=== PATIENT | female | born 1995 | race Caucasian/White ===

== ENCOUNTER 2023-03-02 03:11 | Outpatient (CLI) | payer OTHER, SELFPAY ==
[2023-03-03 11:14] LABS: Varicella IgG Antibody Positive (See Note)
[2023-03-03 21:54] LABS: Syphilis IgG w/Reflex Nonreactive (Nonreactive)
== END 2023-03-02 03:12 | disposition home or self-care (01) ==
LOC: LBO 03:11
PROVIDERS: Visit Provider Advanced Practice Midwife
DX: Z34.92 Encounter for supervision of normal pregnancy, unspecified, second trimester (principal); Z3A.20 20 weeks gestation of pregnancy; Z01.84 Encounter for antibody response examination
CPT/HCPCS: 36415; 86787; 86850; 86900; 86901; 86780

== ENCOUNTER 2023-04-06 17:37 | Emergency (ER) | payer SELFPAY ==
[2023-04-06 17:46] VITALS: BP 125/69; PULSE 86; RESP 16; TEMP 36.8; O2SAT 99
--- NOTE | 2023-04-06 18:10 | W.ED.GENAD ---
Discharge Plan Disposition Patient Disposition: Home Condition: Stable Discharge Details Clinical Impression: Phlebitis of superficial vein of right lower extremity Primary Care Provider: Unknown,Unknown ED Provider: Mamie Manley Home Meds and New Rx's Prescriptions: Continued PNV 119-iron fum-folic acid 29 mg iron- 1 mg tablet 1 tab PO DAILY Discharge Instructions Instructions: Superficial Thrombophlebitis (ED) Referrals: Unknown,Unknown [Primary Care Provider] - (Keep scheduled [facility] follow-up appointments) Discharge Data Discharge Date/Time-TO BE ENTERED AT DEPARTURE: 04/06/23 18:21 Medical Decision Making Patient presents with concern of feeling a lump in her foot. Physical examination is most consistent with phlebitis. There is no surrounding erythema. Bedside ultrasound shows no abscess or foreign body. HPI General Mode of arrival: ambulatory. Date/Time Provider Initiated Documentation: 04/06/23 17:39. Limitations to Documentation: no limitations. Information obtained by: patient. HPI Narrative: This is a healthy 27 year old female, 25 weeks who presents with 4 week history of a small area on her inner right foot reported initially as a small lump. There is no surrounding erythema. The area has grown now approximately 3 to 4 cm's long. She has had no fever no chills there is no pain. Denies any similar history. Denies any other complaints she is eating and drinking well and feels well. Denies any issues with her is followed by [facility]PR[facility]ICE Related Data Home Medications Medication Instructions Recorded Confirmed vitamins no.119-iron 1 tab PO DAILY 03/02/23 04/06/23 fumarate 29 mg-folic acid 1 mg tablet Allergies Allergy/AdvReac Type Severity Reaction Status Date / Time No Known Allergies Allergy Unverified 04/06/23 17:49 General Stated Complaint: GenMedical NADYA: 4 Review of Systems All systems reviewed & are unremarkable except as noted in HPI and below PFSH All Active Problems (Updated 04/06/23 @ 18:13 by Mamie Manley NP) Phlebitis of superficial vein of right lower extremity (Acute) Eczema (Acute) (Acute) Medical History (Updated 04/06/23 @ 18:13 by aMmie Manley NP) Anxiety Family history of breast cancer mother Family History (Updated 03/02/23 @ 09:44 by Cha Tang CNM) Maternal Grandmother Breast cancer Paternal Grandmother Breast cancer Mother Breast cancer age 29 Brother Kidney disease Anxiety Father Bipolar 1 disorder Social History Smoking/Tobacco Use Status: Former Tobacco Use Smoking risk assessment performed?: Yes Alcohol Intake: former Drug use: Current Sobriety Substance use type: marijuana Housing: house Do you feel safe at home: Yes Do you feel safe in your relationship?: Yes History History 1 Para 0 Hx # Term Pregnancies 0 Multiple births 0 Hx # Pregnancies 0 Ectopic pregnancies 0 AB induced 0 Hx Number of Living Children 0 AB spontaneous 0 Exam Const General: cooperative, healthy appearing and comfortable Nutritional Appearance: average body habitus Orientation: alert, awake and oriented x3 Chest Chest: normal inspection of the chest Resp Effort & Inspection: normal respiratory effort Cardio Rate: regular rate Rhythm: other (Good pedal pulse) Skin General skin exam: no rashes or lesions noted, no ecchymosis and other (Small linear elevation on inner aspect of the arch of her right foot) Rashes: no rashes Extrem General: no pedal edema Course Vital Signs Vital signs: Vital Signs Temperature 36.8 C 04/06/23 17:46 Pulse 86 04/06/23 17:46 Respiratory Rate 16 04/06/23 17:46 Blood Pressure 125/69 04/06/23 17:46 Pulse Oximetry 99 04/06/23 17:46 Temperature 36.8 C 04/06/23 17:46 Temperature Source Skin 04/06/23 17:46 Pulse 86 04/06/23 17:46 Respiratory Rate 16 04/06/23 17:46 Respiratory Effort Normal 04/06/23 17:57 Respiratory Depth Normal 04/06/23 17:57 Respiratory Pattern Normal 04/06/23 17:57 Blood Pressure 125/69 04/06/23 17:46 Blood Pressure Position Supine 04/06/23 17:46 Pulse Oximetry 99 04/06/23 17:46 Oxygen Delivery Method Room Air 04/06/23 17:46 Oxygen Flow Rate 0 04/06/23 17:46 Pain Level 0 04/06/23 17:46
== END 2023-04-06 18:21 | disposition home or self-care (01) ==
PROVIDERS: Emergency Provider Nurse Practitioner Acute Care
DX: O22.22 Superficial thrombophlebitis in pregnancy, second trimester (principal); Z87.891 Personal history of nicotine dependence; Z3A.25 25 weeks gestation of pregnancy
CPT/HCPCS: 99282

== ENCOUNTER 2023-04-26 01:45 | Outpatient (CLI) | payer OTHER, SELFPAY ==
[2023-04-26 09:34] LABS: HCT 33.8 % (36.0-46.0); HGB 11.9 g/dL (11.2-15.7); MCH 33.1 pg (27.0-33.0); MCHC 35.2 % (32.0-36.0); MCV 94 fL (80-95); MPV 10.9 fL (8.0-11.0); Platelet Count 158 10^3/uL (130-400); RDW 12.9 % (11.7-14.6); RDW-SD 44.5 fL
[2023-04-26 09:50] LABS: Glucose,1 Hr (Glucola) 137 mg/dL (80-140)
[2023-04-27 09:36] LABS: Hepatitis C Ab w Rflx HCV PCR Negative (Negative)
== END 2023-04-26 01:46 | disposition home or self-care (01) ==
LOC: LBO 01:45
PROVIDERS: Visit Provider Advanced Practice Midwife
DX: Z34.93 Encounter for supervision of normal pregnancy, unspecified, third trimester (principal); Z3A.28 28 weeks gestation of pregnancy
CPT/HCPCS: 36415; 82950; 85027; 86803

== ENCOUNTER 2023-05-05 01:50 | Outpatient (CLI) | payer BC, SELFPAY ==
[2023-05-05 08:47] LABS: Glucose 1 Hour 160 mg/dL
[2023-05-05 10:57] LABS: Glucose 3 Hour 57 mg/dL
== END 2023-05-05 01:51 | disposition home or self-care (01) ==
LOC: LBO 01:50
PROVIDERS: Visit Provider Advanced Practice Midwife
DX: Z34.93 Encounter for supervision of normal pregnancy, unspecified, third trimester (principal); Z3A.29 29 weeks gestation of pregnancy
CPT/HCPCS: 36415; 82951

== ENCOUNTER 2023-06-21 10:56 | Outpatient (REF) | payer BC, SELFPAY ==
[2023-06-21 11:51] LABS: *AMPHETAMINES SCREEN URINE Negative (Negative); *BARBITURATES SCREEN URINE Negative (Negative); *BENZODIAZEPINES SCREEN URINE Negative (Negative); Cannabinoids THC Negative (Negative); Cocaine Screen,Urine Negative (Negative); METHADONE URINE SCREEN Negative (Negative); OPIATES URINE SCREEN Negative (Negative)
[2023-06-21 11:52] LABS: Tricyclic Antidepressants Negative (Negative)
[2023-06-27 12:19] LABS: Buprenorphine Negative ng/mL (Cutoff: 5.0); Norbuprenorphine Negative ng/mL (Cutoff: 2.5)
== END 2023-06-21 10:57 | disposition home or self-care (01) ==
LOC: LBN 10:56
PROVIDERS: Visit Provider Advanced Practice Midwife
DX: Z34.93 Encounter for supervision of normal pregnancy, unspecified, third trimester (principal)
CPT/HCPCS: 80307; 80348; 87081

== ENCOUNTER 2023-07-24 07:19 | Outpatient (CLI) | payer BC, SELFPAY ==
[2023-07-24 09:13] VITALS: BP 135/80; PULSE 81
[2023-07-24 09:17] VITALS: BP 135/80; PULSE 73; RESP 16; TEMP 36.8
[2023-07-24 10:08] VITALS: BP 135/80; PULSE 73; TEMP 38.6
--- NOTE | 2023-07-24 10:55 | W.OBNST ---
Date of service: 07/24/23 Time of Service: 10:55 NST Evaluation Reason for NST Reasons for Nonstress Test: POSTDATES Gestational Age Gestational Age in Weeks and Days: 41 Weeks and 1Days Test and Monitor Explained Test/Monitor Explained: Test Explained, Monitor Explained and Patient Verbalized Understanding Vital Signs Blood Pressure: 135/80 Pulse: 73 Temperature: 101.5 F NST Information Date on Monitor: 07/24/23 Time on Monitor: 09:20 Date off Monitor: 07/24/23 Time off Monitor: 09:41 Total Time on Monitor: 21 NST Interventions: None Contraction Frequency: None NST Evaluation Patient States Movement: Present FHR Baseline: 145 Variability: Moderate 6-25 bpm Accelerations: 15x15 Decelerations: None NST Results: Reactive Note Ultrasound Done: ZOILA (postdates) Total ZOILA: 16.0 Other Pertinent Findings: Heart Rate (148 bpm), Presentation (LOP) and Placental Location (posterior) Coding for ZOILA w/NST: Completed Exam. NST Note Note: Cvx closed, 50% posterior, cephalic presentation LOP, intact membranes Scheduled IOL on 07/26 NST Reviewed and Verified by: Cheri Reeves
[2023-07-24 10:57] VITALS: BP 135/80; PULSE 73; TEMP 38.6
== END 2023-07-24 10:58 | disposition home or self-care (01) ==
LOC: BCD 07:19 → OBS 07:55
PROVIDERS: Visit Provider Advanced Practice Midwife
DX: O48.0 Post-term pregnancy (principal); Z3A.41 41 weeks gestation of pregnancy
CPT/HCPCS: 76815; 59025

== ENCOUNTER 2023-07-26 12:43 | Inpatient (IN) | payer BC, SELFPAY ==
[2023-07-26 13:55] VITALS: BP 126/77; PULSE 81; RESP 16; TEMP 36.9
[2023-07-26] MEDS: miSOPROStol 25 MCG TAB 50 MCG PO ×2 (14:04→18:30)
--- NOTE | 2023-07-26 14:07 | HPE_ITS ---
Date of service: 07/26/23 Time of Service: 13:40 Assessment and Plan Assessment and plan (1) Encounter for induction of labor: Status: Acute Assessment and plan: 1. Plan for induction of labor due to post term at 41w3d. 2. Patient and partner have been counseled on induction of labor and cervical ripening agents and risks and benefits, patient would like to move forward with induction today. 3. tracing is reassuring. Parra score 2. will begin with Misoprostol 50 mcg every 4 hours and reassess after 4 doses or as indicated by maternal status. 4. CBC and type and screen obtained. 5. OB physician [employer] admissions representative is aware of patient admission and CNM plan of care. OB-HPI Labor/Delivery History of Present Illness Reason for Visit: encounter for induction of labor, post term pregna Chief Complaint: Scheduled Induction of Labor Indication for Induction: Post Date (41w3d). YOU Calculator Estimated Delivery Date Method Current WG Current Estimate 07/16/23 Ultrasound #1 41w 3d Other Estimates 07/16/23 LMP (Certain) 41w 3d Comments: Ariane and her , Gary, present for scheduled induction of labor at 41w3d. She is feeling well. They had a long conversation wtjamey Reeves CNM recently and they are able to review misoprostol and pitocin use as well as AROM etc. for IOL. They deny questions and feel prepared to move forward with plan. Denies LOF or vaginal bleeding. Baby has been active. JANINE History of Present Expected Delivery Route/Plan - CNM FOB/fiance - Jamil Cooley (first baby) / Mother and Mother in law at as well [facility] Anusha Desires unmedicated , wants to be active, maybe tub supports will be FOB, her mother Kylie, & Bautista's mom Paulina GBS negative Specific Issues/Plan 1. Transfer @ 20 wks from [place] 2. Constipation-improved with eating more fiber and psyllium husks. 3. Declines genetic testing. 4. History of anxiety - sees a therapist regularly 5. Glucola @ 28 wks = 137, 3 hr GTT; F 83, 1hr 160, 2hr 137, 3 hr 57 6. Heartburn - taking tums and will try papaya. Did not take. Assessment: History Reviewed & Current Informed Consent Informed Consent: Induction of Labor and Risk,Benefits,Alternatives Discussed Review of Systems All systems reviewed & are unremarkable except as noted in HPI and below Constitutional Constitutional: Reports as per HPI Genitourinary Genitourinary: Reports as per HPI Musculoskeletal Musculoskeletal: Reports as per HPI PFSH All Active Problems (Updated 07/26/23 @ 14:20 by Cha Rincon CNM) Encounter for induction of labor (Acute) Elevated glucose level (Acute) Eczema (Acute) (Acute) Medical History Anxiety Family history of breast cancer mother Family History Maternal Grandmother Breast cancer Paternal Grandmother Breast cancer Mother Breast cancer age 29 Brother Kidney disease Anxiety Father Bipolar 1 disorder Social History Smoking/Tobacco Use Status: Former Tobacco Use Smoking risk assessment performed?: Yes Alcohol Intake: former Drug use: Current Sobriety Substance use type: marijuana Housing: house Do you feel safe at home: Yes Do you feel safe in your relationship?: Yes History History 1 Para 0 Hx # Term Pregnancies 0 Multiple births 0 Hx # Pregnancies 0 Ectopic pregnancies 0 AB induced 0 Hx Number of Living Children 0 AB spontaneous 0 Meds Allergies and Home Medications Allergies Allergy/AdvReac Type Severity Reaction Status Date / Time No Known Allergies Allergy Unverified 07/26/23 14:15 Home Medications Medication Instructions Recorded Confirmed Type vitamins no.119-iron 1 tab PO DAILY 03/02/23 07/24/23 History fumarate 29 mg-folic acid 1 mg tablet betamethasone valerate 0.1 % 1 applic topical DAILY PRN 06/07/23 07/24/23 History topical cream Exam Physical Exam Vital signs: Temp Pulse Resp BP 98.5 F 81 16 126/77 07/26/23 13:55 07/26/23 13:55 07/26/23 13:55 07/26/23 13:55 Vital Signs Reviewed: Yes Constitutional Constitutional: no acute distress, average body habitus and cooperative Detailed Labor and Delivery Exam Dilation: 0 Effacement (%): 50 station: -3 Position: LOP Cervix position: posterior Consistency: medium Parra Score: Cervical Points Exam 0 1 2 3 Dilation Closed 1-2cm 3-4 cm 5-6cm Effacement 0-30% 40-50% 60-70% 80% Consistency Firm Medium Soft Station -3 -2 -1,0 +1,+2 Position Posterior Mid Anterior PARRA Score(Cervical Ripeness Score): 2 Amniotic Membrane Status: Intact Monitor Mode: External Contraction Frequency(min): none Fetus A Heart Rate Baseline: 135 Monitor Accelerations: 15 X 15 Monitor Decelerations: None Variability: Moderate (6-25 BPM) Categories: Category I Est. Weight: 8 lb HEENT Exam HEENT Exam: Normal Neck Exam Neck Exam: Normal (visual exam is normal, full ROM) Chest/Brest/Axilla Exam Chest Exam: Normal Breast Exam Breast Exam: Not Done Respiratory Exam Respiratory Exam: Normal Cardiovascular Exam Cardiovascular Exam: Normal Abdominal Exam Abdominal Exam: Normal Rectal Exam Rectal Exam: Not Done Exam Exam: Normal Extremities Exam Extremities Exam: Normal Back/Spine/Pelvis Exam Back Exam: Normal Pelvis Adequate: Yes Skin Exam Skin Exam: Normal Neurological Exam Neurological Exam: Normal Psychiatric Exam Psychiatric Exam: Normal Results Results Group Beta Strep: Negative Blood Type: A+ Rubella Status: Immune Varicella Immunity: Immune Lab Results: GC CT neg, Hep B and C neg, Syphilis neg, HIV neg, 1 hour glucose 137, 3 hour normal F83/1h 160/2h 137/ 3h 57. Declined genetic testing. Risk Assessment Risk for Shoulder Dystocia Historical/Initial OB: NEGATIVE FOR: Pelvic Abnormality, Pre- BMI>30, Previous Shoulder Dystocia or Previous Macrosomia 40 Weeks: POSTIVE FOR: Post Dates; NEGATIVE FOR: EFW> 4500 gms or Maternal Weight Gain >40lb Delivery Plan @ 40 wks: IOL 07/26/23 Risk for Pre-Eclampsia Date Initiated/Initials: KM 03/02/23 Yes, if one or more: NEGATIVE FOR: Hx Pre-E/Gest HTN, Chronic HTN, Multiple Gestation, Pre-gestational DM, Renal Disease, Systemic Lupus or APA Syndrome Yes, if 2 or more: POSITIVE FOR: Nulliparity; NEGATIVE FOR: Age>= 35 yrs, >10yr btwn pregnancies, BMI>30, ethinicty, Mother/Sister w/ Pre-E or Previous IUGR Risk for Post- Hemorrhage Initial: NEGATIVE FOR: Multiple Gestation, Previous PPH, Known Clotting Deficiency, Grand Multiparity or Anticoagulation 40 Weeks: NEGATIVE FOR: Anemia, hgb<10, Low platelets (thrombocytopenia), Gestation HTN or Pre-E, Polyhydraminios or EFW>4500gms Counseled re: Active Management: Yes Date/Initials: 07/26/23 Risks Reviewed Risks Reviewed Upon Admission: Yes
[2023-07-26 14:21] LABS: HCT 37.1 % (36.0-46.0); HGB 13.2 g/dL (11.2-15.7); MCH 33.2 pg (27.0-33.0); MCHC 35.6 % (32.0-36.0); MCV 93 fL (80-95); MPV 13.3 fL (8.0-11.0); Platelet Count 141 10^3/uL (130-400); RBC 3.98 10^6/uL (3.93-5.22); RDW-SD 41.3 fL; WBC 9.85 10^3/uL (4.4-10.8)
[2023-07-26 17:54] VITALS: BP 137/75; PULSE 78; RESP 16; TEMP 36.8
--- NOTE | 2023-07-26 19:04 | W.PM.OBNL1 ---
Date of service: 07/26/23 Time of Service: 19:04 Informed Consent Informed Consent: Induction of Labor and Risk,Benefits,Alternatives Discussed Pelvic Exam Comments: deferred Contractions Monitor Mode: External Contraction Frequency(min): 2-4 Contraction Duration(sec): 60-90 Intensity: Mild Fetus A Monitor: External (US) Heart Rate Baseline: 125 Variability: Moderate (6-25 BPM) Categories: Category I Accelerations: 15 X 15 Decelerations: None Amniotic Membrane Status: Intact Assessment and Plan Assessment and plan (1) Encounter for induction of labor: Status: Acute Assessment and plan: 1. second dose of Misoprostol was given at 1830. Will continue present management and reassess in 4 hours or prn. KH Objective Abnormal lab results 07/26/23 Range/Units 14:00 MCH 33.2 H (27.0-33.0) pg MPV 13.3 H (8.0-11.0) fL Temp Pulse Resp BP 98.2 F 78 16 137/75 07/26/23 17:54 07/26/23 17:54 07/26/23 17:54 07/26/23 17:54 Laboratory Results WBC 9.85 10^3/uL (4.4-10.8) 07/26/23 14:00 RBC 3.98 10^6/uL (3.93-5.22) 07/26/23 14:00 Hgb 13.2 g/dL (11.2-15.7) 07/26/23 14:00 Hct 37.1 % (36.0-46.0) 07/26/23 14:00 MCV 93 fL (80-95) 07/26/23 14:00 MCH 33.2 pg (27.0-33.0) H 07/26/23 14:00 MCHC 35.6 % (32.0-36.0) 07/26/23 14:00 RDW 12.0 % (11.7-14.6) 07/26/23 14:00 Plt Count 141 10^3/uL (130-400) 07/26/23 14:00 MPV 13.3 fL (8.0-11.0) H 07/26/23 14:00 Patient ABO/Rh A Positive 07/26/23 14:00 Antibody Screen NEGATIVE 07/26/23 14:00 Vital Signs Reviewed: Yes Subjective Interval history since last seen: Is aware of contractions but doing well with them. Results Hemoglobin/Hematocrit: Hgb 13.2 g/dL (11.2-15.7) 07/26/23 14:00 Hct 37.1 % (36.0-46.0) 07/26/23 14:00 Abnormal Lab Findings: Abnormal Labs 07/26/23 14:00 MCH 33.2 H MPV 13.3 H
[2023-07-26 20:01] VITALS: BP 130/78; PULSE 87; RESP 16; TEMP 36.8
--- NOTE | 2023-07-26 23:10 | NUR.NOTE ---
Nursing Note: Report received from Rustam at 0. Care assumed until 2300 when report was given to Giuliana. Care relinquished at 2300
[2023-07-26 23:13] VITALS: BP 127/80; PULSE 69
[2023-07-27 02:06] VITALS: BP 125/76; PULSE 71
[2023-07-27 08:02] VITALS: BP 137/76; PULSE 85; RESP 16; TEMP 36.4; O2SAT 100
--- NOTE | 2023-07-27 08:07 | W.PM.OBNL1 ---
Date of service: 07/27/23 Time of Service: 08:07 Informed Consent Informed Consent: Induction of Labor and Risk,Benefits,Alternatives Discussed Fetus A Assessment Note: currently off monitor to be out of bed to shower and have breakfast. JANINE Assessment and Plan Assessment and plan (1) Encounter for induction of labor: Status: Acute Assessment and plan: 1. Will have breakfast and shower and then restart induction with misoprostol 2. Will discuss cook catheter if cervix allows once she is melyssa regularly again. 3. Continue to expect NVD. JANINE Objective Abnormal lab results 07/26/23 Range/Units 14:00 MCH 33.2 H (27.0-33.0) pg MPV 13.3 H (8.0-11.0) fL Temp Pulse Resp BP 98.2 F 85 16 137/76 07/26/23 20:01 07/27/23 08:02 07/26/23 20:01 07/27/23 08:02 Laboratory Results WBC 9.85 10^3/uL (4.4-10.8) 07/26/23 14:00 RBC 3.98 10^6/uL (3.93-5.22) 07/26/23 14:00 Hgb 13.2 g/dL (11.2-15.7) 07/26/23 14:00 Hct 37.1 % (36.0-46.0) 07/26/23 14:00 MCV 93 fL (80-95) 07/26/23 14:00 MCH 33.2 pg (27.0-33.0) H 07/26/23 14:00 MCHC 35.6 % (32.0-36.0) 07/26/23 14:00 RDW 12.0 % (11.7-14.6) 07/26/23 14:00 Plt Count 141 10^3/uL (130-400) 07/26/23 14:00 MPV 13.3 fL (8.0-11.0) H 07/26/23 14:00 Patient ABO/Rh A Positive 07/26/23 14:00 Antibody Screen NEGATIVE 07/26/23 14:00 Subjective Interval history since last seen: Ariane was able to sleep a fair amount over night. Was unable to continue misoprostol due to center patient acuity. Will restart with 50 mcg PO this morning and consider cook catheter once she is melyssa regularly again. KH Results Hemoglobin/Hematocrit: Hgb 13.2 g/dL (11.2-15.7) 07/26/23 14:00 Hct 37.1 % (36.0-46.0) 07/26/23 14:00 Abnormal Lab Findings: Abnormal Labs 07/26/23 14:00 MCH 33.2 H MPV 13.3 H
[2023-07-27] MEDS: miSOPROStol 25 MCG TAB 50 MCG PO (09:15)
[2023-07-27 11:55] VITALS: BP 135/63; PULSE 76
--- NOTE | 2023-07-27 11:58 | W.PM.OBNL1 ---
Date of service: 07/27/23 Time of Service: 11:58 Informed Consent Informed Consent: Induction of Labor and Risk,Benefits,Alternatives Discussed Pelvic Exam Dilation: 0.5 Effacement (%): 60 station: -2 Cervix Position: mid Consistency: medium BISHOPS Score(Cervical Ripeness Score): 5 Contractions Monitor Mode: Palpation Contraction Frequency(min): irregular Contraction Duration(sec): irregular Intensity: Mild/Moderate Fetus A Monitor: Doppler Heart Rate Baseline: 130 Assessment and Plan Assessment and plan (1) Encounter for induction of labor: Status: Acute Assessment and plan: 1. Has now had 3 total doses of misoprostol, 2 yesterday and 1 today. She will have another dose in approximately 1 hour and then we will reassess cervix once contractions are more regular for an hour or so. 2. Continue to expect NVD. KH Objective Abnormal lab results 07/26/23 Range/Units 14:00 MCH 33.2 H (27.0-33.0) pg MPV 13.3 H (8.0-11.0) fL Temp Pulse Resp BP Pulse Ox 97.5 F L 76 16 135/63 100 07/27/23 08:02 07/27/23 11:55 07/27/23 08:02 07/27/23 11:55 07/27/23 08:02 Laboratory Results WBC 9.85 10^3/uL (4.4-10.8) 07/26/23 14:00 RBC 3.98 10^6/uL (3.93-5.22) 07/26/23 14:00 Hgb 13.2 g/dL (11.2-15.7) 07/26/23 14:00 Hct 37.1 % (36.0-46.0) 07/26/23 14:00 MCV 93 fL (80-95) 07/26/23 14:00 MCH 33.2 pg (27.0-33.0) H 07/26/23 14:00 MCHC 35.6 % (32.0-36.0) 07/26/23 14:00 RDW 12.0 % (11.7-14.6) 07/26/23 14:00 Plt Count 141 10^3/uL (130-400) 07/26/23 14:00 MPV 13.3 fL (8.0-11.0) H 07/26/23 14:00 Patient ABO/Rh A Positive 07/26/23 14:00 Antibody Screen NEGATIVE 07/26/23 14:00 Subjective Interval history since last seen: Doing well with contractions. She is agreeable to Cook Catheter at some point. Contractions are currently only every 10 minutes. Results Hemoglobin/Hematocrit: Hgb 13.2 g/dL (11.2-15.7) 07/26/23 14:00 Hct 37.1 % (36.0-46.0) 07/26/23 14:00 Abnormal Lab Findings: Abnormal Labs 07/26/23 14:00 MCH 33.2 H MPV 13.3 H
[2023-07-27 15:55] VITALS: BP 120/69; PULSE 69
[2023-07-27] MEDS: Dinoprostone-CERVICAL 10 MG VSUPP VG (16:27)
[2023-07-27 20:40] VITALS: TEMP 36.9
[2023-07-27 20:44] VITALS: BP 111/66; PULSE 69; TEMP 36.9
--- NOTE | 2023-07-27 21:27 | W.PM.OBNL1 ---
Date of service: 07/27/23 Time of Service: 21:27 Informed Consent Informed Consent: Induction of Labor and Risk,Benefits,Alternatives Discussed Pelvic Exam Comments: VE deferred until cervidil is removed or PRN. KH Contractions Monitor Mode: External Contraction Frequency(min): 6-8 Contraction Duration(sec): 60 Intensity: Mild/Moderate Fetus A Monitor: Novii Heart Rate Baseline: 120 Variability: Moderate (6-25 BPM) Categories: Category I Accelerations: 15 X 15 Decelerations: None Amniotic Membrane Status: Intact Assessment and Plan Assessment and plan (1) Encounter for induction of labor: Status: Acute Assessment and plan: 1. Continue present management 2. Will remove cervidil in early AM and reassess 3. Continue to expect NVD. Objective Temp Pulse Resp BP Pulse Ox 97.5 F L 69 16 111/66 100 07/27/23 08:02 07/27/23 20:44 07/27/23 08:02 07/27/23 20:44 07/27/23 08:02 Laboratory Results WBC 9.85 10^3/uL (4.4-10.8) 07/26/23 14:00 RBC 3.98 10^6/uL (3.93-5.22) 07/26/23 14:00 Hgb 13.2 g/dL (11.2-15.7) 07/26/23 14:00 Hct 37.1 % (36.0-46.0) 07/26/23 14:00 MCV 93 fL (80-95) 07/26/23 14:00 MCH 33.2 pg (27.0-33.0) H 07/26/23 14:00 MCHC 35.6 % (32.0-36.0) 07/26/23 14:00 RDW 12.0 % (11.7-14.6) 07/26/23 14:00 Plt Count 141 10^3/uL (130-400) 07/26/23 14:00 MPV 13.3 fL (8.0-11.0) H 07/26/23 14:00 Patient ABO/Rh A Positive 07/26/23 14:00 Antibody Screen NEGATIVE 07/26/23 14:00 Vital Signs Reviewed: Yes Subjective Interval history since last seen: Breathing through some contractions, resting in bed. Results Hemoglobin/Hematocrit: Hgb 13.2 g/dL (11.2-15.7) 07/26/23 14:00 Hct 37.1 % (36.0-46.0) 07/26/23 14:00 Abnormal Lab Findings: Abnormal Labs 07/26/23 14:00 MCH 33.2 H MPV 13.3 H
[2023-07-28] VITALS (8 sets, daily range): BP systolic 103–137; BP diastolic 57–82; PULSE 64–83; RESP 16; TEMP 36.5–37.4; O2SAT 100
--- NOTE | 2023-07-28 05:20 | W.PM.OBNL1 ---
Date of service: 07/28/23 Time of Service: 04:45 Informed Consent Informed Consent: Induction of Labor and Risk,Benefits,Alternatives Discussed Pelvic Exam Comments: VE deferred per patient request, not currently in active labor. KH Contractions Monitor Mode: Palpation Contraction Frequency(min): irregular 3-10 Contraction Duration(sec): 30-80 Intensity: Mild/Moderate Fetus A Monitor: Novii Heart Rate Baseline: 120 Variability: Moderate (6-25 BPM) Categories: Category I Accelerations: 15 X 15 Decelerations: None Assessment and Plan Assessment and plan (1) Encounter for induction of labor: Status: Acute Assessment and plan: 1. Cervidil removed 2. Discussed option of Cook Catheter with or without another agent VS period of rest, food and shower before moving forward 3. Ariane has had minimal sleep and is requesting a period of rest. I will check in with her at 7:30 if I have not been called to attend before that time and review some options for care. KH Objective Temp Pulse Resp BP Pulse Ox 98.6 F 67 16 126/78 100 07/28/23 00:06 07/28/23 04:39 07/28/23 00:06 07/28/23 04:39 07/27/23 08:02 Laboratory Results WBC 9.85 10^3/uL (4.4-10.8) 07/26/23 14:00 RBC 3.98 10^6/uL (3.93-5.22) 07/26/23 14:00 Hgb 13.2 g/dL (11.2-15.7) 07/26/23 14:00 Hct 37.1 % (36.0-46.0) 07/26/23 14:00 MCV 93 fL (80-95) 07/26/23 14:00 MCH 33.2 pg (27.0-33.0) H 07/26/23 14:00 MCHC 35.6 % (32.0-36.0) 07/26/23 14:00 RDW 12.0 % (11.7-14.6) 07/26/23 14:00 Plt Count 141 10^3/uL (130-400) 07/26/23 14:00 MPV 13.3 fL (8.0-11.0) H 07/26/23 14:00 Patient ABO/Rh A Positive 07/26/23 14:00 Antibody Screen NEGATIVE 07/26/23 14:00 Vital Signs Reviewed: Yes Notable Details: current BP 126/78, P67, R16 Subjective Interval history since last seen: Ariane continues to feel some more uncomfortable contractions and some that allow for short naps. She prefers to avoid cervical exam at this time as wel transition from Cervidil to a short rest period and then next intervention to encourage labor. She is tired and requests some space at this time. I have encouraged her to remain persistent and have reinforced that this process is slow, reinforced that her body is responding with contractions consistently all night and that her baby is tolerating all very well. KH Results Hemoglobin/Hematocrit: Hgb 13.2 g/dL (11.2-15.7) 07/26/23 14:00 Hct 37.1 % (36.0-46.0) 07/26/23 14:00 Abnormal Lab Findings: Abnormal Labs 07/26/23 14:00 MCH 33.2 H MPV 13.3 H
--- NOTE | 2023-07-28 07:47 | NUR.NOTE ---
Nursing Note: Report recieved from Marisol Mayer. RN to bedside, patient tearful and expressing worry that pitocin might not work pt reassured. Pt desires shower. Monitor paused so patient can shower.
--- NOTE | 2023-07-28 09:09 | NUR.NOTE ---
Nursing Note: Cha Tang CNM at bedside discussing POC. Pt agreeable to SVE. SVE per CNM: Cervix is unreachable, posterior, +1. POC for more misoprostol
[2023-07-28] MEDS: miSOPROStol 25 MCG TAB 50 MCG PO ×3 (09:32→17:35)
--- NOTE | 2023-07-28 10:23 | W.PM.OBNL1 ---
Date of service: 07/28/23 Time of Service: 10:23 Informed Consent Informed Consent: Induction of Labor and Risk,Benefits,Alternatives Discussed Pelvic Exam Effacement (%): 90 station: +1 Cervix Position: posterior Consistency: soft Comments: SVE attempted. ariane did not tolerate exam and cervix is very soft and posterior. Unable to reach cervical os. Contractions Monitor Mode: External Contraction Frequency(min): every 2-3 Contraction Duration(sec): 60 Intensity: Moderate Fetus A Monitor: External (US) Heart Rate Baseline: 130 Presentation: Cephalic Variability: Moderate (6-25 BPM) Categories: Category I FHR Rhythm: Regular Accelerations: 15 X 15 Decelerations: None Amniotic Membrane Status: Intact Assessment and Plan Assessment and plan (1) Encounter for induction of labor: Status: Acute Assessment and plan: Reviewed options with Ariane of continued cervical ripening with misoprostol or pitocin infusion. Due to need for cervical ripening, Ariane chose misoprostol and 50 mcg was administered. Anticipate . Will assess for cervical change when appropriate and signs of active labor occur or in 4 hours when another dose of misoprostol is due. . Objective Temp Pulse Resp BP Pulse Ox 97.7 F 77 16 126/66 100 07/28/23 07:49 07/28/23 10:13 07/28/23 07:49 07/28/23 10:13 07/28/23 07:49 Laboratory Results WBC 9.85 10^3/uL (4.4-10.8) 07/26/23 14:00 RBC 3.98 10^6/uL (3.93-5.22) 07/26/23 14:00 Hgb 13.2 g/dL (11.2-15.7) 07/26/23 14:00 Hct 37.1 % (36.0-46.0) 07/26/23 14:00 MCV 93 fL (80-95) 07/26/23 14:00 MCH 33.2 pg (27.0-33.0) H 07/26/23 14:00 MCHC 35.6 % (32.0-36.0) 07/26/23 14:00 RDW 12.0 % (11.7-14.6) 07/26/23 14:00 Plt Count 141 10^3/uL (130-400) 07/26/23 14:00 MPV 13.3 fL (8.0-11.0) H 07/26/23 14:00 Patient ABO/Rh A Positive 07/26/23 14:00 Antibody Screen NEGATIVE 07/26/23 14:00 Subjective Interval history since last seen: The cervidil was removed at 0500 and Ariane declines cerical exam. She slept for a few hours and awoke with mild contractions and has been ambulating. She noticed a tingling in the back if her right thigh which does not occur with rest and she experiences when she walks around. Results Hemoglobin/Hematocrit: Hgb 13.2 g/dL (11.2-15.7) 07/26/23 14:00 Hct 37.1 % (36.0-46.0) 07/26/23 14:00 Abnormal Lab Findings: Abnormal Labs 07/26/23 14:00 MCH 33.2 H MPV 13.3 H
--- NOTE | 2023-07-28 11:22 | NUR.NOTE ---
Nursing Note: tachy cardia noted. temp 98.3 pt encouraged to drink water.
--- NOTE | 2023-07-28 11:32 | NUR.NOTE ---
Nursing Note: tachycardia noted x 30 min. Pt afebrile at 98.3 and encouraged to increase fluid intake. JULIÁN Tang notified via [facility]
--- NOTE | 2023-07-28 17:29 | W.PM.OBNL1 ---
Date of service: 07/28/23 Time of Service: 17:29 Informed Consent Informed Consent: Induction of Labor and Risk,Benefits,Alternatives Discussed Pelvic Exam Comments: Mini mead came in to speak with Ariane. She attempted and exam but Ariane declined prior to attempt saying I can't do this Contractions Monitor Mode: External Contraction Frequency(min): evry 4-5 Contraction Duration(sec): 60 Intensity: Moderate Fetus A Monitor: External (US) Heart Rate Baseline: 140 Variability: Moderate (6-25 BPM) Categories: Category I FHR Rhythm: Regular Accelerations: 15 X 15 Decelerations: None Assessment and Plan Assessment and plan (1) Encounter for induction of labor: Status: Acute Assessment and plan: Mini spoke with Ariane and discussed a 6 th dose of misoprostol tonight followed by 2 hours of monitoring. She said she would like to take some medication for sleep and stop medications for the night to rest. Will perform cervical check when condition warrants. Dr. Parsons was notified of the patients progress in labor induction. Objective Temp Pulse Resp BP Pulse Ox 98.9 F 83 16 124/70 100 07/28/23 13:35 07/28/23 13:35 07/28/23 07:49 07/28/23 13:35 07/28/23 07:49 Laboratory Results WBC 9.85 10^3/uL (4.4-10.8) 07/26/23 14:00 RBC 3.98 10^6/uL (3.93-5.22) 07/26/23 14:00 Hgb 13.2 g/dL (11.2-15.7) 07/26/23 14:00 Hct 37.1 % (36.0-46.0) 07/26/23 14:00 MCV 93 fL (80-95) 07/26/23 14:00 MCH 33.2 pg (27.0-33.0) H 07/26/23 14:00 MCHC 35.6 % (32.0-36.0) 07/26/23 14:00 RDW 12.0 % (11.7-14.6) 07/26/23 14:00 Plt Count 141 10^3/uL (130-400) 07/26/23 14:00 MPV 13.3 fL (8.0-11.0) H 07/26/23 14:00 Patient ABO/Rh A Positive 07/26/23 14:00 Antibody Screen NEGATIVE 07/26/23 14:00 Subjective Interval history since last seen: Ariane received a fifth dose of misoprostol at 1330. She is feeling discouraged and is tearful regarding slow progress of induction. I spoke to her about options including taking medication for rest tonight. She requested to speak to Mini Mead about this, stating she needed a 'pep talk I did review with her that it can be normal for inductions to take a long time with her first baby. I discussed with her the heart rate pattern which is normal. Mini did come and speak to her and reviewed options. Results Hemoglobin/Hematocrit: Hgb 13.2 g/dL (11.2-15.7) 07/26/23 14:00 Hct 37.1 % (36.0-46.0) 07/26/23 14:00 Abnormal Lab Findings: Abnormal Labs 07/26/23 14:00 MCH 33.2 H MPV 13.3 H
[2023-07-28] MEDS: Zolpidem 5 MG TAB 10 MG PO (20:34)
--- NOTE | 2023-07-28 21:26 | W.PM.OBNL1 ---
Date of service: 07/28/23 Time of Service: 21:26 Informed Consent Informed Consent: Induction of Labor and Risk,Benefits,Alternatives Discussed Pelvic Exam Comments: Ariane declines cervical exam. Contractions Contraction Frequency(min): irregular Intensity: Moderate Fetus A Monitor: External (US) Heart Rate Baseline: 140 Variability: Moderate (6-25 BPM) Categories: Category I FHR Rhythm: Regular Accelerations: 15 X 15 Decelerations: None Assessment and Plan Assessment and plan (1) Encounter for induction of labor: Status: Acute Assessment and plan: Ariane took a bath. The monitor was removed and rest was encouraged. Will assess heart rate when she awakes. We discussed reassessment and pitocin infusion to continue induction when she awakes. Objective Temp Pulse Resp BP Pulse Ox 98.9 F 72 16 133/72 100 07/28/23 19:31 07/28/23 19:31 07/28/23 19:31 07/28/23 19:31 07/28/23 07:49 Laboratory Results WBC 9.85 10^3/uL (4.4-10.8) 07/26/23 14:00 RBC 3.98 10^6/uL (3.93-5.22) 07/26/23 14:00 Hgb 13.2 g/dL (11.2-15.7) 07/26/23 14:00 Hct 37.1 % (36.0-46.0) 07/26/23 14:00 MCV 93 fL (80-95) 07/26/23 14:00 MCH 33.2 pg (27.0-33.0) H 07/26/23 14:00 MCHC 35.6 % (32.0-36.0) 07/26/23 14:00 RDW 12.0 % (11.7-14.6) 07/26/23 14:00 Plt Count 141 10^3/uL (130-400) 07/26/23 14:00 MPV 13.3 fL (8.0-11.0) H 07/26/23 14:00 Patient ABO/Rh A Positive 07/26/23 14:00 Antibody Screen NEGATIVE 07/26/23 14:00 Subjective Interval history since last seen: Ariane was given a 6th dose of misoprostol 50 mcg and contractions continue to be irregular. She requested medication for sleep and ambien 10 mg PO was provided. Results Hemoglobin/Hematocrit: Hgb 13.2 g/dL (11.2-15.7) 07/26/23 14:00 Hct 37.1 % (36.0-46.0) 07/26/23 14:00 Abnormal Lab Findings: Abnormal Labs 07/26/23 14:00 MCH 33.2 H MPV 13.3 H
[2023-07-29] VITALS (7 sets, daily range): BP systolic 115–137; BP diastolic 55–86; PULSE 70–100; RESP 16–18; TEMP 36.3–37.4
--- NOTE | 2023-07-29 10:48 | W.PM.OBNL1 ---
Date of service: 07/29/23 Time of Service: 10:48 Informed Consent Informed Consent: Induction of Labor and Risk,Benefits,Alternatives Discussed Pelvic Exam Comments: deferred. RN unable to reach cervical os Contractions Monitor Mode: External Contraction Frequency(min): irregular Contraction Duration(sec): varies Intensity: Mild Fetus A Monitor: External (US) Heart Rate Baseline: 140 Variability: Moderate (6-25 BPM) Categories: Category I FHR Rhythm: Regular Accelerations: 15 X 15 Decelerations: None Assessment and Plan Assessment and plan (1) Encounter for induction of labor: Status: Acute Assessment and plan: Pitocin per protocol for labor induction. Will reassess for cervical dilation when patient agrees. Anticipate . Dr. Parsons notified of patient's status. Objective Temp Pulse Resp BP Pulse Ox 99.1 F 100 H 16 120/77 100 07/29/23 07:44 07/29/23 07:44 07/29/23 07:44 07/29/23 07:44 07/28/23 07:49 Laboratory Results WBC 9.85 10^3/uL (4.4-10.8) 07/26/23 14:00 RBC 3.98 10^6/uL (3.93-5.22) 07/26/23 14:00 Hgb 13.2 g/dL (11.2-15.7) 07/26/23 14:00 Hct 37.1 % (36.0-46.0) 07/26/23 14:00 MCV 93 fL (80-95) 07/26/23 14:00 MCH 33.2 pg (27.0-33.0) H 07/26/23 14:00 MCHC 35.6 % (32.0-36.0) 07/26/23 14:00 RDW 12.0 % (11.7-14.6) 07/26/23 14:00 Plt Count 141 10^3/uL (130-400) 07/26/23 14:00 MPV 13.3 fL (8.0-11.0) H 07/26/23 14:00 Patient ABO/Rh A Positive 07/26/23 14:00 Antibody Screen NEGATIVE 07/26/23 14:00 Subjective Interval history since last seen: Ariane slept very well with ambien. She requested avaginal exam of the RN caring for her. She reported that the cervix was posterior and she could not reach the os. I offered a second exam and Ariane declined. We discussed options for continued induction and she agrees to pitocin augmentation this morning and that was ordered. Results Hemoglobin/Hematocrit: Hgb 13.2 g/dL (11.2-15.7) 07/26/23 14:00 Hct 37.1 % (36.0-46.0) 07/26/23 14:00 Abnormal Lab Findings: Abnormal Labs 07/26/23 14:00 MCH 33.2 H MPV 13.3 H
[2023-07-29] MEDS: Oxytocin/Normal Saline 30 UNIT/500 ML BAG 2 UNITS IV (11:10)
[2023-07-29] MEDS: Lactated Ringers 1,000 ML 125 ML IV ×2 (11:14→18:45)
--- NOTE | 2023-07-29 18:10 | W.PM.OBNL1 ---
Date of service: 07/29/23 Time of Service: 18:10 Informed Consent Informed Consent: Induction of Labor and Risk,Benefits,Alternatives Discussed (cervical ripening balloon offered and declined. AROM offered and declined.) Pelvic Exam Comments: cervical exam declined Contractions Monitor Mode: External Contraction Frequency(min): every 2-3 min. Contraction Duration(sec): 40-60 Intensity: Mild/Moderate Fetus A Monitor: External (US) Heart Rate Baseline: 130 Presentation: Vertex Variability: Moderate (6-25 BPM) Categories: Category I Accelerations: 15 X 15 Decelerations: None Amniotic Membrane Status: Intact Assessment and Plan Assessment and plan (1) Encounter for induction of labor: Status: Acute Assessment and plan: I discussed increasing pitocin by 2 mu/min to 20 mu/min and Ariane is in agreement. Comfort measures and anticipate . Cervical exam offered when patient consents. Objective Temp Pulse Resp BP Pulse Ox 98.9 F 72 16 115/55 L 100 07/29/23 16:07 07/29/23 16:07 07/29/23 16:07 07/29/23 16:07 07/28/23 07:49 Laboratory Results WBC 9.85 10^3/uL (4.4-10.8) 07/26/23 14:00 RBC 3.98 10^6/uL (3.93-5.22) 07/26/23 14:00 Hgb 13.2 g/dL (11.2-15.7) 07/26/23 14:00 Hct 37.1 % (36.0-46.0) 07/26/23 14:00 MCV 93 fL (80-95) 07/26/23 14:00 MCH 33.2 pg (27.0-33.0) H 07/26/23 14:00 MCHC 35.6 % (32.0-36.0) 07/26/23 14:00 RDW 12.0 % (11.7-14.6) 07/26/23 14:00 Plt Count 141 10^3/uL (130-400) 07/26/23 14:00 MPV 13.3 fL (8.0-11.0) H 07/26/23 14:00 Patient ABO/Rh A Positive 07/26/23 14:00 Antibody Screen NEGATIVE 07/26/23 14:00 Subjective Interval history since last seen: Ariane has been using the ball and many positions for comfort. She is coping well with contractions. Pitocin is at 16 mu/min. Her sister and other and mother in law are present for support as well as her Results Hemoglobin/Hematocrit: Hgb 13.2 g/dL (11.2-15.7) 07/26/23 14:00 Hct 37.1 % (36.0-46.0) 07/26/23 14:00 Abnormal Lab Findings: Abnormal Labs 07/26/23 14:00 MCH 33.2 H MPV 13.3 H
[2023-07-30] VITALS (9 sets, daily range): BP systolic 116–153; BP diastolic 74–84; PULSE 74–90; RESP 16–18; TEMP 36.4–37.3
--- NOTE | 2023-07-30 00:33 | W.PM.OBNL1 ---
Date of service: 07/30/23 Time of Service: 00:34 Informed Consent Informed Consent: Induction of Labor and Risk,Benefits,Alternatives Discussed (cervical ripening balloon offered and declined. AROM offered and declined.) Pelvic Exam Comments: exam deferred per patient's request Contractions Monitor Mode: External Contraction Frequency(min): every 2 minutes Contraction Duration(sec): 40-60 Intensity: Mild/Moderate Fetus A Monitor: External (US) Heart Rate Baseline: 140 Presentation: Vertex Variability: Moderate (6-25 BPM) Categories: Category I FHR Rhythm: Regular Accelerations: 15 X 15 Decelerations: Variable Recurrence: Episodic Assessment and Plan Assessment and plan (1) Encounter for induction of labor: Status: Acute Assessment and plan: I recommended to ariane and Bautista that we stop the pitocin over night and consider restarting in the morning. I explained that due to the fact that she had been sleeping for 3 hours, she was not in active labor. I offered an exam of the cervix but she declines stating that she is trying to remain positive and hearing that her cervix is not changing would make it more difficult for her. I also offered cervidil over night but she declines that. She is in agreement with stopping the pitocin at this time and restarting in the morning and she stated that she would probably agree to an exam of her cervix in the morning. I offered medication for sleep but she said that she believes she can sleep without medication. Objective Temp Pulse Resp BP Pulse Ox 98 F 70 18 131/74 100 07/29/23 20:04 07/29/23 20:04 07/29/23 20:04 07/29/23 20:04 07/28/23 07:49 Laboratory Results WBC 9.85 10^3/uL (4.4-10.8) 07/26/23 14:00 RBC 3.98 10^6/uL (3.93-5.22) 07/26/23 14:00 Hgb 13.2 g/dL (11.2-15.7) 07/26/23 14:00 Hct 37.1 % (36.0-46.0) 07/26/23 14:00 MCV 93 fL (80-95) 07/26/23 14:00 MCH 33.2 pg (27.0-33.0) H 07/26/23 14:00 MCHC 35.6 % (32.0-36.0) 07/26/23 14:00 RDW 12.0 % (11.7-14.6) 07/26/23 14:00 Plt Count 141 10^3/uL (130-400) 07/26/23 14:00 MPV 13.3 fL (8.0-11.0) H 07/26/23 14:00 Patient ABO/Rh A Positive 07/26/23 14:00 Antibody Screen NEGATIVE 07/26/23 14:00 Subjective Interval history since last seen: Ariane has been sleeping since 2099. The pitocin has been running at 20 mu/min since 2034. Results Hemoglobin/Hematocrit: Hgb 13.2 g/dL (11.2-15.7) 07/26/23 14:00 Hct 37.1 % (36.0-46.0) 07/26/23 14:00 Abnormal Lab Findings: Abnormal Labs 07/26/23 14:00 MCH 33.2 H MPV 13.3 H
[2023-07-30] MEDS: Normal Saline Flush 10 ML SYR IVP ×2 (07:28→11:02)
--- NOTE | 2023-07-30 09:41 | NUR.NOTE ---
Nursing Note: Dr Onofre at bedside discussing cervical balloon placement. Pt agreeable and wishes to use nitrous during placement. Nitrous consent signed and pt verbalized instructions for use. Balloon placed with speculum. 40ml sterine water in uterine balloon and 40ml sterile water in vaginal balloon. Pt tolerated well.
--- NOTE | 2023-07-30 11:10 | W.PM.OBNL1 ---
Date of service: 07/30/23 Time of Service: 11:12 Informed Consent Informed Consent: Induction of Labor and Risk,Benefits,Alternatives Discussed (cervical ripening balloon offered and declined. Ariane consented after discussion with Dr Parsons) Pelvic Exam Dilation: 0 Effacement (%): 75 station: -2 Cervix Position: posterior Consistency: soft BISHOPS Score(Cervical Ripeness Score): 3 Contractions Monitor Mode: External Contraction Frequency(min): every 5-6 Contraction Duration(sec): 40 Intensity: Mild Fetus A Monitor: External (US) Heart Rate Baseline: 130 Presentation: Cephalic Variability: Moderate (6-25 BPM) Categories: Category I FHR Rhythm: Regular Accelerations: 15 X 15 Decelerations: Variable Recurrence: Episodic Amniotic Membrane Status: Intact Assessment and Plan Assessment and plan (1) Encounter for induction of labor: Status: Acute Assessment and plan: Ariane was discouraged by limited cervical change. We discussed continue cervical ripening and/or if she desires. She wishes to avoid section unless medically necessary. Dr. Parsons was present on the unit and she came to meet Ariane and offered a cervical ripening balloon in addition to pitocin. Ariane agreed and the balloon was placed by Dr Parsons using a speculum and ring forcep placed on the cervix. This was placed using nitrous oxide which Ariane tolerated well. She wishes to ambulate before starting pitocin. Anticipate . Pitocin induction per protocol, Objective Temp Pulse Resp BP Pulse Ox 98.3 F 85 18 126/78 100 07/30/23 07:07 07/30/23 10:41 07/29/23 20:04 07/30/23 10:41 07/28/23 07:49 Laboratory Results WBC 9.85 10^3/uL (4.4-10.8) 07/26/23 14:00 RBC 3.98 10^6/uL (3.93-5.22) 07/26/23 14:00 Hgb 13.2 g/dL (11.2-15.7) 07/26/23 14:00 Hct 37.1 % (36.0-46.0) 07/26/23 14:00 MCV 93 fL (80-95) 07/26/23 14:00 MCH 33.2 pg (27.0-33.0) H 07/26/23 14:00 MCHC 35.6 % (32.0-36.0) 07/26/23 14:00 RDW 12.0 % (11.7-14.6) 07/26/23 14:00 Plt Count 141 10^3/uL (130-400) 07/26/23 14:00 MPV 13.3 fL (8.0-11.0) H 07/26/23 14:00 Patient ABO/Rh A Positive 07/26/23 14:00 Antibody Screen NEGATIVE 07/26/23 14:00 Subjective Interval history since last seen: Ariane rested well after the pitocin was turned off. The pitocin was restarted this morning and contractions are mild. No discomfort. Results Hemoglobin/Hematocrit: Hgb 13.2 g/dL (11.2-15.7) 07/26/23 14:00 Hct 37.1 % (36.0-46.0) 07/26/23 14:00 Abnormal Lab Findings: Abnormal Labs 07/26/23 14:00 MCH 33.2 H MPV 13.3 H
--- NOTE | 2023-07-30 11:49 | W.OBCONSULT ---
Date of service: 07/30/23 Time of Service: 11:50 Assessment and Plan Assessment and plan (1) Encounter for induction of labor: Status: Acute Assessment and plan: Will continue with oxytocin titration with Eugene bulb in place. History of Present Illness History of Present Illness Chief Complaint: Post dates induction of labor Narrative: I was asked to evaluate pt who was admitted on 07/26/23 at 41w2d EGA for post dates IOL. She has undergone a course of Misoprostil cervical ripening and Oxytocin infusion without change in cervical dilation. After introducing myself to the patient and her we reviewed plan for continuing her induction. Plan was formulated to place a eugene balloon and to resume Oxytocin infusion. Pt was agreeable to plan Consults Consult date: 07/30/23 Requesting physician: Cha Tang [facility] All Active Problems (Updated 07/26/23 @ 14:20 by Cha Rincon CNM) Encounter for induction of labor (Acute) Elevated glucose level (Acute) Eczema (Acute) (Acute) Medical History Anxiety Family history of breast cancer mother Family History Maternal Grandmother Breast cancer Paternal Grandmother Breast cancer Mother Breast cancer age 29 Brother Kidney disease Anxiety Father Bipolar 1 disorder Social History Smoking/Tobacco Use Status: Former Tobacco Use Smoking risk assessment performed?: Yes Alcohol Intake: former Drug use: Current Sobriety Substance use type: marijuana Housing: house Do you feel safe at home: Yes Do you feel safe in your relationship?: Yes History History 1 Para 0 Hx # Term Pregnancies 0 Multiple births 0 Hx # Pregnancies 0 Ectopic pregnancies 0 AB induced 0 Hx Number of Living Children 0 AB spontaneous 0 Exam Other: After verbal consent was obtained patient was placed in dorsolithotomy position and a bivalve speculum was placed in the vagina and the cervix visualized. Patient was given nitrous oxide to use during the procedure. Cervix was cleansed with Betadine and anterior lip of the cervix was grasped with a ring forcep and a Eugene catheter balloon kit with stylette was inserted through the internal os the Eugene bulb within the uterus was inflated to 40 cc normal saline as was the Eugene bulb outside of the cervix within the vagina. Stylet was removed Eugene was taped in place. Patient tolerated the procedure well all instruments removed from the vagina the anterior lip of the cervix was hemostatic Results Last Vital Signs Temp 98.3 F 07/30/23 07:07 Pulse 85 07/30/23 10:41 Resp 18 07/29/23 20:04 BP 126/78 07/30/23 10:41 Pulse Ox 100 07/28/23 07:49 Labs 07/26/23 14:00
[2023-07-30] MEDS: Lactated Ringers 1,000 ML 125 ML IV (12:08)
--- NOTE | 2023-07-30 14:08 | NUR.NOTE ---
Nursing Note: Pt reporting feeling contractions that are not being traced. RN palpating contractions that are not tracing. Dr Corea at bedside and suggesting pt take a shower and replace NOVII patch. Per Dr Onofre pt can be off monitor temporarily to shower and change NOVII patch.
--- NOTE | 2023-07-30 15:45 | W.PM.OBNL1 ---
Date of service: 07/30/23 Time of Service: 15:45 Informed Consent Informed Consent: Induction of Labor and Risk,Benefits,Alternatives Discussed (cervical ripening balloon offered and declined. Ariane consented after discussion with Dr Parsons) Pelvic Exam Comments: deferred, balloon in place Contractions Monitor Mode: External Contraction Frequency(min): every 3 min Contraction Duration(sec): 40-60 Intensity: Mild/Moderate Fetus A Monitor: External (US) Heart Rate Baseline: 130 Presentation: Vertex Variability: Moderate (6-25 BPM) Categories: Category I Accelerations: 15 X 15 Decelerations: None Amniotic Membrane Status: Intact Assessment and Plan Assessment and plan (1) Encounter for induction of labor: Status: Acute Assessment and plan: Will continue to provide comfort measures. Dr Parsons visited ariane and is aware of her status. Objective Temp Pulse Resp BP Pulse Ox 97.5 F L 90 18 139/74 100 07/30/23 15:11 07/30/23 15:11 07/30/23 15:11 07/30/23 15:11 07/28/23 07:49 Laboratory Results WBC 9.85 10^3/uL (4.4-10.8) 07/26/23 14:00 RBC 3.98 10^6/uL (3.93-5.22) 07/26/23 14:00 Hgb 13.2 g/dL (11.2-15.7) 07/26/23 14:00 Hct 37.1 % (36.0-46.0) 07/26/23 14:00 MCV 93 fL (80-95) 07/26/23 14:00 MCH 33.2 pg (27.0-33.0) H 07/26/23 14:00 MCHC 35.6 % (32.0-36.0) 07/26/23 14:00 RDW 12.0 % (11.7-14.6) 07/26/23 14:00 Plt Count 141 10^3/uL (130-400) 07/26/23 14:00 MPV 13.3 fL (8.0-11.0) H 07/26/23 14:00 Patient ABO/Rh A Positive 07/26/23 14:00 Antibody Screen NEGATIVE 07/26/23 14:00 Results Hemoglobin/Hematocrit: Hgb 13.2 g/dL (11.2-15.7) 07/26/23 14:00 Hct 37.1 % (36.0-46.0) 07/26/23 14:00 Abnormal Lab Findings: Abnormal Labs 07/26/23 14:00 MCH 33.2 H MPV 13.3 H
--- NOTE | 2023-07-30 20:57 | W.PM.OBNL1 ---
Date of service: 07/30/23 Time of Service: 20:58 Informed Consent Informed Consent: Induction of Labor and Risk,Benefits,Alternatives Discussed (cervical ripening balloon offered and declined. Ariane consented after discussion with Dr Parsons) Pelvic Exam Dilation: 3 station: -1 Comments: SVE by Dr Parsons Contractions Monitor Mode: External Contraction Frequency(min): every 2-3 Contraction Duration(sec): 50-60 Intensity: Moderate IUPC resting tone (mmHg): 25 IUPC peak pressure (mmHg): 55 IUPC Truxton units: 180 Fetus A Amniotic Membrane Status: Ruptured Rupture Method: Artifical Amniotic Fluid: Meconium Assessment and Plan Assessment and plan (1) Encounter for induction of labor: Status: Acute Assessment and plan: Balloon removal, AROMand IUPC placement procedures performed by Dr. Parsons and risks and benefits related to these interventions explained as well as presence of meconium stained fluid. Removal of the ripening balloon and AROM were performed under nitrous oxide which was helpful to Ariane with pain and fear related to these procedures. Ariane and Bautista expressed concern about the necessity of these procedures but agreed after the rationale for them was explained. Ariane was fearful of the information about the meconium stained fluid as she had meconium when she was born and this was very frightening to her mother. Management of meconium stained fluid explained to Ariane and Bautista. [facility] and consider increasing pitocin rate if indicated. Objective Temp Pulse Resp BP Pulse Ox 97.7 F 90 16 138/81 100 07/30/23 19:38 07/30/23 19:15 07/30/23 16:57 07/30/23 19:15 07/28/23 07:49 Laboratory Results WBC 9.85 10^3/uL (4.4-10.8) 07/26/23 14:00 RBC 3.98 10^6/uL (3.93-5.22) 07/26/23 14:00 Hgb 13.2 g/dL (11.2-15.7) 07/26/23 14:00 Hct 37.1 % (36.0-46.0) 07/26/23 14:00 MCV 93 fL (80-95) 07/26/23 14:00 MCH 33.2 pg (27.0-33.0) H 07/26/23 14:00 MCHC 35.6 % (32.0-36.0) 07/26/23 14:00 RDW 12.0 % (11.7-14.6) 07/26/23 14:00 Plt Count 141 10^3/uL (130-400) 07/26/23 14:00 MPV 13.3 fL (8.0-11.0) H 07/26/23 14:00 Patient ABO/Rh A Positive 07/26/23 14:00 Antibody Screen NEGATIVE 07/26/23 14:00 Subjective Interval history since last seen: Pitocin is at 16 mu/minute. ariane is coping well with contractions. Frequent, regular contractions occurring. Dr. Parsons discussed IUPC for more accurate contraction strength monitoring. Ariane and Bautista agree to proceed with removal of the Cervical ripening balloon and AROM as well as IUPC for contraction monitoring. Results Hemoglobin/Hematocrit: Hgb 13.2 g/dL (11.2-15.7) 07/26/23 14:00 Hct 37.1 % (36.0-46.0) 07/26/23 14:00 Abnormal Lab Findings: Abnormal Labs 07/26/23 14:00 MCH 33.2 H MPV 13.3 H
--- NOTE | 2023-07-30 21:48 | PGE_ITS ---
Date of service: 07/30/23 Time of Service: 21:48 Informed Consent Informed Consent: Induction of Labor and Risk,Benefits,Alternatives Discussed (cervical ripening balloon offered and declined. Ariane consented after discussion with Dr Parsons) Pelvic Exam Dilation: 3 Effacement (%): 75 station: -1 (During contraction with amniotic sac intact) Cervix Position: mid Consistency: soft Vaginal Exam Presentation: Cephalic Comments: Thick particulate meconium Contractions Monitor Mode: Internal Contraction Frequency(min): 3min Intensity: Moderate IUPC resting tone (mmHg): 10 IUPC peak pressure (mmHg): 60 IUPC [place] units: 250 Fetus A Heart Rate Baseline: 130 Presentation: Cephalic Variability: Moderate (6-25 BPM) Categories: Category I FHR Rhythm: Regular Characteristics: Normal Accelerations: 15 X 15 Decelerations: None Amniotic Membrane Status: Ruptured Assessment and Plan Assessment and plan (1) Encounter for induction of labor: Status: Acute Assessment and plan: Day 5 postdates induction of labor an intrauterine Fields catheter was inserted for 10 hours and removed cervical change noted. Assisted rupture membranes performed with thick particulate meconium noted IUPC placed and at present she has adequate contractions by [place] units. Her Pitocin concentration has not increased significantly in the past several hours. If the patient does not respond with further cervical change or descent in the next 2 to 3 hours with currently adequate oxytocin concentration then I will move towards recommending a delivery. Objective Temp Pulse Resp BP Pulse Ox 98.1 F 90 16 138/81 100 07/30/23 21:31 07/30/23 19:15 07/30/23 16:57 07/30/23 19:15 07/28/23 07:49 Laboratory Results WBC 9.85 10^3/uL (4.4-10.8) 07/26/23 14:00 RBC 3.98 10^6/uL (3.93-5.22) 07/26/23 14:00 Hgb 13.2 g/dL (11.2-15.7) 07/26/23 14:00 Hct 37.1 % (36.0-46.0) 07/26/23 14:00 MCV 93 fL (80-95) 07/26/23 14:00 MCH 33.2 pg (27.0-33.0) H 07/26/23 14:00 MCHC 35.6 % (32.0-36.0) 07/26/23 14:00 RDW 12.0 % (11.7-14.6) 07/26/23 14:00 Plt Count 141 10^3/uL (130-400) 07/26/23 14:00 MPV 13.3 fL (8.0-11.0) H 07/26/23 14:00 Patient ABO/Rh A Positive 07/26/23 14:00 Antibody Screen NEGATIVE 07/26/23 14:00 Subjective Patient Reports: No new Complaints (contractions localized suprapubic region) Interval history since last seen: Patient had Fields intrauterine balloon present for approximate 10 hours and requested further evaluation. Results Hemoglobin/Hematocrit: Hgb 13.2 g/dL (11.2-15.7) 07/26/23 14:00 Hct 37.1 % (36.0-46.0) 07/26/23 14:00 Abnormal Lab Findings: Abnormal Labs 07/26/23 14:00 MCH 33.2 H MPV 13.3 H
[2023-07-30] MEDS: Azithromycin 500 MG VIAL (23:35)
--- NOTE | 2023-07-30 23:36 | PGE_ITS ---
Date of service: 07/30/23 Time of Service: 23:36 Informed Consent Informed Consent: Induction of Labor and Risk,Benefits,Alternatives Discussed (cervical ripening balloon offered and declined. Ariane consented after discussion with Dr Parsons) Pelvic Exam Dilation: 3 Effacement (%): 50 Cervix Position: mid Consistency: soft Vaginal Exam Presentation: Cephalic Contractions Monitor Mode: Internal Contraction Frequency(min): 3 minutes Contraction Duration(sec): 60 seconds Intensity: Moderate/Strong IUPC [place] units: 240 Fetus A Monitor: External (US) Heart Rate Baseline: 130 Presentation: Cephalic Variability: Moderate (6-25 BPM) Categories: Category I FHR Rhythm: Regular Characteristics: Normal Accelerations: 15 X 15 Assessment and Plan Assessment and plan (1) Abnormality of labor: Status: Acute Assessment and plan: Patient is 42w0d EGA who has undergone induction of labor since 07/26/2023. Oxytocin infusion titrated to 16 milliunits/min throughout the day. Adequate monitor evaluate units demonstrated with an IUPC. Despite adequate contractions there has been no descent of the vertex presenting part or dilation of the cervix after intrauterine Fields bulb removed. I explained to the patient that delivery is recommended and she has consented. She has been counseled regarding the risks of the procedure including infection damage to surrounding structures including bowel bladder and blood vessels possible elsa with a scalpel to the baby's skin at the time of delivery. She was counseled regarding blood loss and the possible need for transfusion. Informed consent was obtained questions were answered. Objective Temp Pulse Resp BP Pulse Ox 98.1 F 74 16 153/83 H 100 07/30/23 21:31 07/30/23 23:14 07/30/23 16:57 07/30/23 23:14 07/28/23 07:49 Laboratory Results WBC 9.85 10^3/uL (4.4-10.8) 07/26/23 14:00 RBC 3.98 10^6/uL (3.93-5.22) 07/26/23 14:00 Hgb 13.2 g/dL (11.2-15.7) 07/26/23 14:00 Hct 37.1 % (36.0-46.0) 07/26/23 14:00 MCV 93 fL (80-95) 07/26/23 14:00 MCH 33.2 pg (27.0-33.0) H 07/26/23 14:00 MCHC 35.6 % (32.0-36.0) 07/26/23 14:00 RDW 12.0 % (11.7-14.6) 07/26/23 14:00 Plt Count 141 10^3/uL (130-400) 07/26/23 14:00 MPV 13.3 fL (8.0-11.0) H 07/26/23 14:00 Patient ABO/Rh A Positive 07/26/23 14:00 Antibody Screen NEGATIVE 07/26/23 14:00 Vital Signs Reviewed: Yes Objective Narrative Objective Narrative: Heart regular rate and rhythm Subjective Patient Reports: No new Complaints (Tolerating painful regular contractions ) Interval history since last seen: Approximately 3 hours since cyst rupture membranes and insertion of intrauterine pressure catheter. Thick particulate meconium noted Results Hemoglobin/Hematocrit: Hgb 13.2 g/dL (11.2-15.7) 07/26/23 14:00 Hct 37.1 % (36.0-46.0) 07/26/23 14:00 Abnormal Lab Findings: Abnormal Labs 07/26/23 14:00 MCH 33.2 H MPV 13.3 H
--- NOTE | 2023-07-30 23:51 | W.PM.OBNL1 ---
Date of service: 07/30/23 Time of Service: 23:51 Informed Consent Informed Consent: Induction of Labor and Risk,Benefits,Alternatives Discussed (cervical ripening balloon offered and declined. Ariane consented after discussion with Dr Parsons) Pelvic Exam Dilation: 3 Contractions Monitor Mode: Internal Contraction Frequency(min): evry 3 min Contraction Duration(sec): 60 Intensity: Moderate/Strong IUPC resting tone (mmHg): 20 IUPC peak pressure (mmHg): 70 IUPC [place] units: 200 Fetus A Monitor: External (US) Heart Rate Baseline: 130 Variability: Moderate (6-25 BPM) Categories: Category I FHR Rhythm: Regular Accelerations: 15 X 15 Decelerations: None Amniotic Membrane Status: Ruptured Assessment and Plan Assessment and plan (1) Abnormality of labor: Status: Acute Assessment and plan: Ariane is accepting of delivery at this time for unsuccessful induction of labor and failure to progress. Anesthesia procedures and OR routine explained and consent by Dr. Parsons and will prepare for . Objective Temp Pulse Resp BP Pulse Ox 98.1 F 74 16 153/83 H 100 07/30/23 21:31 07/30/23 23:14 07/30/23 16:57 07/30/23 23:14 07/28/23 07:49 Laboratory Results WBC 9.85 10^3/uL (4.4-10.8) 07/26/23 14:00 RBC 3.98 10^6/uL (3.93-5.22) 07/26/23 14:00 Hgb 13.2 g/dL (11.2-15.7) 07/26/23 14:00 Hct 37.1 % (36.0-46.0) 07/26/23 14:00 MCV 93 fL (80-95) 07/26/23 14:00 MCH 33.2 pg (27.0-33.0) H 07/26/23 14:00 MCHC 35.6 % (32.0-36.0) 07/26/23 14:00 RDW 12.0 % (11.7-14.6) 07/26/23 14:00 Plt Count 141 10^3/uL (130-400) 07/26/23 14:00 MPV 13.3 fL (8.0-11.0) H 07/26/23 14:00 Patient ABO/Rh A Positive 07/26/23 14:00 Antibody Screen NEGATIVE 07/26/23 14:00 Subjective Interval history since last seen: Adequate contractions with [place] units at 200. Ariane is coping well. Exam by Dr Parsons is unchanged from 3 hours ago. delivery discussed with Ariane and Bautista and Ariane's mother. Results Hemoglobin/Hematocrit: Hgb 13.2 g/dL (11.2-15.7) 07/26/23 14:00 Hct 37.1 % (36.0-46.0) 07/26/23 14:00 Abnormal Lab Findings: Abnormal Labs 07/26/23 14:00 MCH 33.2 H MPV 13.3 H
[2023-07-31] VITALS (21 sets, daily range): BP systolic 99–141; BP diastolic 56–114; PULSE 60–100; RESP 14–18; TEMP 36.5–36.9; TEMPC 36.3; O2SAT 95–100; BMI 32.6
[2023-07-31] MEDS: Normal Saline 250 ML (00:05)
--- NOTE | 2023-07-31 00:16 | ANES.PREOP_ITS ---
General Info Date of Service Date Performed: 07/31/23 Height: 5 ft 9 in Weight: 100.244 kg Body Mass Index (BMI): 32.6 Surgical Procedure: Operation Date: 07/31/23 00:35 Proposed Procedure Side Surgeon p Section Irlanda Parsons MD Meds Allergies and Home Medications Allergies Allergy/AdvReac Type Severity Reaction Status Date / Time No Known Allergies Allergy Unverified 07/26/23 14:15 Home Medication Medication Instructions Recorded vitamins no.119-iron 1 tab PO DAILY 03/02/23 fumarate 29 mg-folic acid 1 mg tablet betamethasone valerate 0.1 % 1 applic topical DAILY PRN 06/07/23 topical cream Current Visit Medications: Current Medications Generic Name Dose Route Start Last Admin Trade Name Freq PRN Reason Stop Dose Admin Citric Acid/Sodium Citrate 30 ml 07/30/23 23:45 Sodium Citrate 30 Ml Cup PO PREOP TREY Dinoprostone 10 mg 07/27/23 16:00 07/27/23 16:27 Dinoprostone-Cervical 10 Mg Vsupp VG 10 mg DIRECTED TREY Administration Ringer's Solution 1,000 mls @ 200 mls/hr 07/26/23 12:45 IV INFUSION TREY Ringer's Solution 1,000 mls @ 125 mls/hr 07/29/23 10:15 07/30/23 12:08 IV 125 mls/hr INFUSION TREY Administration Oxytocin/Sodium Chloride 30 unit in 500 mls @ 2 mls/hr 07/29/23 10:15 07/30/23 18:55 Pitocin/Normal Saline IV 16 milliunits/min INFUSION TREY 16 mls/hr Titration Protocol 2 MILLIUNITS/MIN Cefazolin Sodium/Dextrose 2 gm in 50 mls @ 100 mls/hr 07/30/23 23:45 Ancef Duplex IVPB PREOP TREY Azithromycin 500 mg/ Sodium 250 mls @ 250 mls/hr 07/30/23 23:45 Chloride IVPB PREOP TREY Ringer's Solution 1,000 mls @ 200 mls/hr 07/30/23 23:45 IV INFUSION TREY IV Miscellaneous Supplies 1 each 07/26/23 12:45 Iv Access IV DIRECTED TREY IV Miscellaneous Supplies 1 each 07/29/23 10:15 Iv Access IV DIRECTED TREY IV Miscellaneous Supplies 1 each 07/30/23 23:45 Iv Access IV DIRECTED TREY Sodium Chloride 0 ml 07/26/23 12:43 07/30/23 11:02 Normal Saline Flush 10 Ml Syr IVP 10 ml PRN PRN Administration Sodium Chloride 0 ml 07/26/23 12:43 Normal Saline 10 Ml Vial IJ DIRECTED PRN Sodium Chloride 0 ml 07/29/23 10:13 Normal Saline Flush 10 Ml Syr IVP PRN PRN Sodium Chloride 0 ml 07/29/23 10:13 Normal Saline 10 Ml Vial IJ DIRECTED PRN Sodium Chloride 0 ml 07/30/23 23:34 Normal Saline Flush 10 Ml Syr IVP PRN PRN Sodium Chloride 0 ml 07/30/23 23:34 Normal Saline 10 Ml Vial IJ DIRECTED PRN Terbutaline Sulfate 0.25 mg 07/26/23 12:43 Terbutaline 1 Mg/Ml Vial SC PRN PRN Zolpidem Tartrate 10 mg 07/27/23 17:11 07/28/23 20:34 Zolpidem 5 Mg Tab PO 10 mg HS PRN PRN Administration PFSH Active Problems Active Problems: Problem Status Onset Code Encounter for induction of labor Z34.90 Elevated glucose level R73.09 Eczema L30.9 Z34.90 Medical History Medical History Anxiety Family history of breast cancer mother Tobacco Smoking/Tobacco Use Status: Former Tobacco Use Alcohol Alcohol Intake: former Substance Use Substance use: Current Sobriety Substance use type: marijuana Prental History History 2 1 Para 0 Hx # Term Pregnancies 0 Multiple births 0 Hx # Pregnancies 0 Ectopic pregnancies 0 AB induced 0 Hx Number of Living Children 0 AB spontaneous 0 Vital Signs and Lab Results Vital Signs Most Recent Vital Signs in EMR: Most Recent Vital Signs Temp Pulse Resp BP Pulse Ox 36.7 C 74 16 153/83 H 100 07/30/23 21:31 07/30/23 23:14 07/30/23 16:57 07/30/23 23:14 07/28/23 07:49 Lab Results 07/26/23 14:00 Blood Type / Crossmatch: 2 Patient ABO/Rh A Positive 07/26/23 Antibody Screen NEGATIVE 07/26/23 Complete Blood Count: 2 White Blood Count 9.85 10^3/uL (4.4-10.8) 07/26/23 14:00 Red Blood Count 3.98 10^6/uL (3.93-5.22) 07/26/23 14:00 Hemoglobin 13.2 g/dL (11.2-15.7) 07/26/23 14:00 Hematocrit 37.1 % (36.0-46.0) 07/26/23 14:00 Platelet Count 141 10^3/uL (130-400) 07/26/23 14:00 Complete Metabolic Panel: 2 No Data to Display Liver Function Panel: 2 No Data to Display Coagulation Panel: 2 No Data to Display Cardiac Panel: 2 No Data to Display Arterial Blood Gas: 2 No Data to Display Venous Blood Gas: 2 No Data to Display Pancreas Panel: 2 No Data to Display Thyroid Panel: 2 No Data to Display Infectious Disease: 2 No Data to Display Blood Cultures: 2 No Data to Display Toxicology Panel: 2 No Data to Display Panel: 2 No Data to Display Anesthesia Assessment and Plan Anesthesia History Personal History: No History of Anesthesia Complications Family History: No Family History of Anesthesia Complications Exercise Tolerance Exercise Tolerance: Metabolic Equivalents>4 Cardiac & Pulmonary Exam Cardiac Exam: Normal S1/S2 Heart Sounds Pulmonary Exam: Clear Bilateral Breath Sounds Implantable Cardiac Device Does patient have a Pacemaker or an ICD?: No Airway Exam Known Difficult Airway: No Mallampati Class: 1 Mouth Opening: Normal (> 3cm) Thyromental Distance: Greater than 3 cm Neck Range of Motion: Full ROM Neck Circumference: Normal Teeth Condition: Normal Dentition ASA Classification ASA Score: ASA 2 Emergency Case?: Yes NPO Status NPO Status: Full Stomach Status Status: Confirmed Anesthesia Plan Resuscitation Status: Full Code Anesthesia Technique: Spinal Anesthesia Airway Planned: Endotracheal Tube Monitors Used: Standard Monitors Preoperative Comments:: 27 yo G1 for IOL for c section due to failure to progress. Sig PMHx: anxiety, former smoker/etoh. denies major.
[2023-07-31] MEDS: ceFAZolin 2 GM/50 ML BAG IVPB (00:38)
[2023-07-31] MEDS: Lactated Ringers 1,000 ML 30 ML IV (00:38)
[2023-07-31] MEDS: Bupivacaine 0.25% Pres-Free 30 ML VIAL (01:50)
--- NOTE | 2023-07-31 02:10 | W.ANESPOSTOP ---
Postoperative Evaluation Date, Time and Location Date Performed: 07/31/23 Time Performed: 02:10 Patient Location: Obstetrics Vital Signs Most Recent Imported Vital Signs: Most Recent Vital Signs Temp Pulse Resp BP Pulse Ox 36.7 C 74 16 153/83 H 100 07/30/23 21:31 07/30/23 23:14 07/30/23 16:57 07/30/23 23:14 07/28/23 07:49 Most Recent Manually Entered Vital Signs: Adult Blood Pressure: 141/114 Heart Rate: 100 Respirations: 18 Oxygen Saturation (%): 95 Temperature (C): 36.3 C Pain Score (0-10 Scale): 0 Pain Score Most Recent Pain Score: Most Recent Pain Score Pain Level [Lower Abdomen] 0 07/29/23 02:36 Pain Level 0 07/26/23 14:07 Assessment Mental Status: Awake (Alert & Oriented to Patient Baseline) Airway and Respiratory Function: Patent airway with normal (patient baseline) respiratory exam Cardiovascular Function: Hemodynamically Stable Hydration Status: Adequately Hydrated Nausea & Vomiting: No Nausea or Vomiting Pain: Pt. Denies Any Pain Peripheral Nerve Block: Patient did not receive a nerve block Postoperative Comments:: spinal still in effect.
[2023-07-31 06:35] LABS: HCT 35.1 % (36.0-46.0); HGB 12.5 g/dL (11.2-15.7); MCH 33.1 pg (27.0-33.0); MCHC 35.6 % (32.0-36.0); MCV 93 fL (80-95); MPV 12.9 fL (8.0-11.0); Platelet Count 138 10^3/uL (130-400); RBC 3.78 10^6/uL (3.93-5.22); RDW 11.8 % (11.7-14.6); RDW-SD 40.3 fL; WBC 16.84 10^3/uL (4.4-10.8)
--- NOTE | 2023-07-31 06:48 | W.PM.OBCSECT ---
Date of service: 07/31/23 Time of Service: 06:48 Operative Note Operative Note Delivery Method: Unscheduled STAT: No and Primary NTSV>37 Weeks: Yes DATE OF PROCEDURE: 07/31/23 PRE-OP DIAGNOSES: unsuccessful induction of labor at 42w EGA POST-OP DIAGNOSES: same PROCEDURE: Primary unscheduled LTCS SURGEON: Irlanda Parsons Anesthesia: spinal Estimated blood loss (mL): 300 Pathology: other (cord blood to lab) Complications: None Patient was transported to: floor Patient's condition: stable Indications: 27yo G1 female who was admitted at 41w3d EGA for post term induction of labor. Pt underwent cervical ripening with prostaglandins and eventually an intrauterine eugene balloon as well as several days of Oxytocin infusion. By 42w0d there had been no descent of the presenting part from a -1 station or cervical dilation beyond 3cm despite adequate [place] units the decision was made to proceed with a primary delivery. Findings: Viable female in OP position. Particulate meconium stained amniotic fluid. Weight: , Apgars , Nl uterus, adnexa, pelvis. Procedure Description: Patient was taken to the operating room she is placed in the sitting position and spinal anesthesia was administered without difficulty. She was then placed in the dorsal supine position with a leftward tilt. SCDs and a Eugene catheter to gravity drainage were in place. A vaginal prep with Betadine was performed and the patient was prepped and draped in the usual sterile fashion.Surgical timeout was performed. Preop antibiotics were administered. After a adequate level of anesthesia was achieved a Pfannenstiel skin incision was made approximately 2 cm superior to the pubic symphysis using a scalpel and the underlying subcutaneous tissue dissected using Bovie electrocautery to the level of the rectus fascia. The rectus fascia was then nicked in the midline and the fascial incision extended laterally using Bovie electrocautery. 2 Liya clamps were applied to the superior rectus fascia and the rectus fascia was dissected off of the underlying rectus muscles using Bovie electrocautery and blunt technique. A similar technique was carried out on the inferior rectus fascia. Rectus muscles were then in the midline and the peritoneum entered bluntly. The peritoneal incision was extended laterally using blunt technique. The vesicle-uterine peritoneum over lower uterine segment was incised with curved Be scissors and the bladder flap created bluntly. Scalpel was used to incise the lower uterine segment in a transverse fashion. The uterine incision was extended bluntly and the amniotic sac was ruptured with meconium stained amniotic fluid noted. A single gloved hand was placed into the uterine cavity and the head was successfully delivered through the uterine incision followed by the trunk and extremities with the assistance of fundal pressure. The cord was doubly clamped and cut and the handed off to the waiting pediatric team. A segment of umbilical cord was obtained and the placenta was extracted with a combination of fundal massage and gentle cord traction. The uterus was exteriorized cleared of all clots and debris and the uterine incision reapproximated with a running lock suture of 0 Vicryl followed by a second imbricating suture of 0 Vicryl. Uterine incision was noted be hemostatic. The uterus was returned to the abdomen and the paracolic gutters cleared of all clots and debris. Uterine incision and the along with the bladder flap and the abdominal wall were all inspected and noted to be hemostatic. The rectus fascia was reapproximated with a running suture of 0 Vicryl. space within the subcutaneous tissue closed with a running suture of 2-0 Vicryl. The skin incision was reapproximated with a subcuticular closure of 4-0 Vicryl. Steri strips and a Mepilex dressing was applied. The uterus was massaged for any remaining clots and debris. The patient was transported to recovery area in stable condition. All sponge, lap, and needle counts correct x2. Gestational Age in Weeks/Days: 42 Weeks and 1 Days Infant Gender: Female weight: 7 lb 0.348 oz
--- NOTE | 2023-07-31 07:08 | W.PM.OBPNV1 ---
Date of service: 07/31/23 Time of Service: 07:08 Assessment and Plan Assessment and plan (1) S/P section: Status: Acute Assessment and plan: Serosanguineous drainage from incision. Previous dressing removed and abdominal pad secured with tape in place. (2) Rubella immune status not known: Status: Acute Assessment and plan: No rubella results in patient's chart. I have ordered a rubella to be drawn today and results will determine if patient receives vaccination prior to discharge. Subjective Subjective Interval history: POD 0 pLTCS. Pt currently comfortable. Successfully had infant latch for . Patient comments: No complaints Patient's Mood: good [place] baby status: Doing well, Nursing well, Rooming in and Strong Bonding Observed feeding status: Exclusively breast feeding Exam Physical Exam Vital signs: Temp Pulse Resp BP Pulse Ox 98.1 F 74 16 104/62 98 07/30/23 21:31 07/31/23 04:50 07/31/23 04:50 07/31/23 04:50 07/31/23 04:50 Vital Signs Reviewed: Yes Narrative: AM labs currently pending Constitutional Constitutional: no acute distress Respiratory Exam Respiratory Exam: Normal Cardiovascular Exam Cardiovascular Exam: Normal Abdominal Exam Comments: I was called to room because pt's initial postop dressing was saturated with serous sanguineous fluid. I removed the dressing and inspected the incision which was intact with steri strips in place. No active bleeding noted. I applied an ABD pad and covered it with tape Fundal Exam Fundus: Below Umbilicus Rectal Exam Rectal Exam: Not Done Extremities Exam Extremity Exam: Normal Back/Spine/Pelvis Exam Back Exam: Normal Skin Exam Skin Exam: Normal Neurological Exam Neurological Exam: Normal Psychiatric Exam Psychiatric Exam: Normal Results Hemoglobin/Hematocrit: Hgb 12.5 g/dL (11.2-15.7) 07/31/23 06:20 Hct 35.1 % (36.0-46.0) L 07/31/23 06:20 Abnormal Lab Findings: Abnormal Labs 07/26/23 07/31/23 14:00 06:20 WBC 16.84 H RBC 3.78 L Hct 35.1 L MCH 33.2 H 33.1 H MPV 13.3 H 12.9 H
[2023-07-31] MEDS: Normal Saline Flush 10 ML SYR IVP ×2 (08:08→13:51)
[2023-07-31] MEDS: Ketorolac 30 MG/ML VIAL IVP ×2 (08:08→13:51)
[2023-07-31] MEDS: Naloxone 0.4 MG/ML VIAL IVP (13:51)
[2023-07-31] MEDS: Acetaminophen 325 MG TAB 650 MG PO (20:10)
[2023-07-31] MEDS: Ibuprofen 600 MG TAB PO (20:10)
[2023-08-01 08:00] VITALS: BP 107/78; PULSE 80; RESP 16; TEMP 37; O2SAT 100
[2023-08-01] MEDS: Acetaminophen 325 MG TAB 650 MG PO ×2 (08:22→17:09)
--- NOTE | 2023-08-01 09:20 | OBPPV_ITS ---
Date of service: 08/01/23 Time of Service: 09:27 Assessment and Plan Assessment and plan (1) S/P section: Status: Acute Assessment and plan: POD 1 pLTCS. successfully. Pain controlled with Acetaminophen. I encouraged her to use NSAIDs as an additional analgesic. Will consider discharge to home today if infant is OK'd for discharge. Pt will f/u in 2 weeks for initial postop check. Subjective Subjective Interval history: POD1 pLTCS for arrest of dilation and descent. Pt had 5 days of attempted cervical induction with maxium cervical dilation to 3cm. Surgery was uncomplicated. Pt reports satisfactory pain control. Patient comments: No complaints, Pain well controlled and Tolerating diet baby status: Doing well, Nursing well, Rooming in and Strong Bonding Observed [place] feeding status: Exclusively breast feeding Narrative: infant is being evaluated for hearing test and by counselor later this morning. Exam Physical Exam Vital signs: Temp Pulse Resp BP Pulse Ox 98.6 F 80 16 107/78 100 08/01/23 08:00 08/01/23 08:00 08/01/23 08:00 08/01/23 08:00 08/01/23 08:00 Vital Signs Reviewed: Yes Constitutional Constitutional: no acute distress Neck Exam Neck Exam: Normal Respiratory Exam Respiratory Exam: Normal Cardiovascular Exam Cardiovascular Exam: Normal Abdominal Exam Abdomen: Tender Comments: Steri-strips in place. Incision clean dry and intact. 3cm of Ecchymosis below Pfannenstiel incision. Fundal Exam Fundus: Below Umbilicus and Firm Rectal Exam Rectal Exam: Not Done Extremities Exam Extremity Exam: Normal Back/Spine/Pelvis Exam Back Exam: Normal Skin Exam Skin Exam: Normal Neurological Exam Neurological Exam: Normal Psychiatric Exam Psychiatric Exam: Normal Results Hemoglobin/Hematocrit: Hgb 12.5 g/dL (11.2-15.7) 07/31/23 06:20 Hct 35.1 % (36.0-46.0) L 07/31/23 06:20 Abnormal Lab Findings: Abnormal Labs 07/26/23 07/31/23 14:00 06:20 WBC 16.84 H RBC 3.78 L Hct 35.1 L MCH 33.2 H 33.1 H MPV 13.3 H 12.9 H
[2023-08-01 10:14] LABS: Rubella IgG Ab (UVM) Positive (See Note)
[2023-08-01] MEDS: Ibuprofen 600 MG TAB PO ×2 (11:30→17:09)
[2023-08-01] MEDS: Docusate Sodium 100 MG CAP PO ×2 (11:30→17:10)
[2023-08-01 14:20] VITALS: BP 111/78; PULSE 85; RESP 16; TEMP 36.8; O2SAT 99
--- NOTE | 2023-08-01 14:50 | DSE_ITS ---
Date of service: 08/01/23 Time of Service: 14:50 DS: Diagnosis Discharge Diagnosis (1) S/P section: Status: Acute (2) Abnormality of labor: Status: Acute Asessment and Plan: Arrest of dilation and descent after 5d IOL. Discharge Plan Disposition Patient Disposition: Home Condition: Good Discharge Details Reason For Visit: encounter for induction of labor, post term pregna Admit Date/Time: 07/26/23 12:43 Admit Provider: Cha Rincon Attending Provider: Cha Rincon Primary Care Provider: Unknown,Unknown Home Meds and New Rx's Prescriptions: No Action PNV 119-iron fum-folic acid 29 mg iron- 1 mg tablet 1 tab PO DAILY betamethasone valerate 0.1 % cream 1 applic topical DAILY PRN Discharge Instructions Additional Instructions: Percocet 5/325mg. One tablet for pain not relieved with Ibuprofen or Acetaminophen. 600mg of over the counter Ibuprofen every 6 hours as needed for pain. Acetaminophen 500mg every 6 hours as needed for pain Stand Alone Forms: BC Instructions, BC Discharge Instruc Activity:: Activity as Tolerated Equipment/Supplies:: No Equipment Needed Diet:: As Tolerated Discharge Orders Discharge Orders: Discharge Order (Routine); Ordered 08/01/23 Ordered By: Irlanda Parsons OB:DS Summary Summary Delivery Method: Primary Episiotomy Description: None complications OB DS: none Contraception Discussed Contraception Discussed: No, [place] Gender-Baby A: Female (Anusha) weight: 7 lb 0.348 oz Disposition of Baby A: Home Status at Discharge Functional status at discharge: independent ambulation Overall status at discharge: patient is progressing back to baseline Mental Status: mental status grossly normal Speech and Movement: speech and movement normal Mood: congruent mood Affect: normal affect Time Spent with Patient providing and/or coordinating discharge services: Less than 30 minutes Exam Physical Exam Vital signs: Temp Pulse Resp BP Pulse Ox 98.3 F 85 16 111/78 99 08/01/23 14:20 08/01/23 14:20 08/01/23 14:20 08/01/23 14:20 08/01/23 14:20 Vital Signs Reviewed: Yes Constitutional Constitutional: no acute distress HEENT Exam HEENT Exam: Normal Neck Exam Neck Exam: Normal Respiratory Exam Respiratory Exam: Normal Cardiovascular Exam Cardiovascular Exam: Normal Abdominal Exam Abdomen: Other (dressing off. Incision C/D/I steri strips in place. Sl amount of ecchymosis) Fundal Exam Fundus: Below Umbilicus and Firm Rectal Exam Rectal Exam: Not Done Extremities Exam Extremity Exam: Normal Back/Spine/Pelvis Exam Back Exam: Normal Skin Exam Skin Exam: Normal Neurological Exam Neurological Exam: Normal Psychiatric Exam Psychiatric Exam: Normal PFSH All Active Problems (Updated 08/01/23 @ 14:53 by Irlanda Parsons MD) S/P section (Acute) 07/31/23. Arrest of dilation and descent. Abnormality of labor (Acute) Arrest of dilation, descent after 5day IOL for postdates Encounter for induction of labor (Acute) Elevated glucose level (Acute) Eczema (Acute) (Acute) Medical History Anxiety Family history of breast cancer mother Family History Maternal Grandmother Breast cancer Paternal Grandmother Breast cancer Mother Breast cancer age 29 Brother Kidney disease Anxiety Father Bipolar 1 disorder Social History Smoking/Tobacco Use Status: Former Tobacco Use Smoking risk assessment performed?: Yes Alcohol Intake: former Drug use: Current Sobriety Substance use type: marijuana Housing: house Do you feel safe at home: Yes Do you feel safe in your relationship?: Yes History History 1 Para 01 Hx # Term Pregnancies 01 Multiple births 0 Hx # Pregnancies 0 Ectopic pregnancies 0 AB induced 0 Hx Number of Living Children 01 AB spontaneous 0 Past Pregnancies Del. Date GA/Weeks # Preg Succ Route Wgt Sex Labor Lgth Anesth esia Location Prov Complic 07/30/23 42 No Yes vaginal Female aoc/KM Delivery Date: 07/30/23 Last Updated by: Irlanda Parsons MD [facility]. IOLx5d for postdates. Arrest of dilation and descent. Max dila tion 3cm DS: Data Vitals/I&O Vitals and I&O: Vital Signs Temperature 98.3 F 08/01/23 14:20 Temperature Source Oral 08/01/23 14:20 Pulse 85 08/01/23 14:20 Pulse Rhythm Regular 08/01/23 08:00 Respiratory Rate 16 08/01/23 14:20 Respiratory Depth Normal 07/30/23 07:53 Blood Pressure 111/78 08/01/23 14:20 Blood Pressure Mean 89 08/01/23 14:20 Pulse Oximetry 99 08/01/23 14:20 Pain Level 3 08/01/23 08:22 Intake & Output 07/31/23 08/01/23 08/01/23 23:59 11:59 23:59 Output Total 3350 / 3950 Balance -3350 / -3100 Output: Urine 3350 / 3650 Other: Urine Color Pale Data Completed and Pending Labs on day of discharge: Labs from last 24 hours 07/31/23 06:20 Rubella IgG Antibody Positive
== END 2023-08-01 18:00 | disposition home or self-care (01) | DRG 788 ==
PROVIDERS: Obstetrics & Gynecology Gynecology; Admitting Provider Advanced Practice Midwife; Visit Provider Advanced Practice Midwife
PROC: 10D00Z1 Extraction of Products of Conception, Low, Open Approach (ICD-10-PCS; CPT 59514; principal; 2023-07-31 00:35)
DX: O48.0 Post-term pregnancy (principal); Z37.0 Single live birth; Z3A.42 42 weeks gestation of pregnancy; K59.00 Constipation, unspecified; R12 Heartburn; O99.62 Diseases of the digestive system complicating childbirth; O99.344 Other mental disorders complicating childbirth; F41.9 Anxiety disorder, unspecified; O99.72 Diseases of the skin and subcutaneous tissue complicating childbirth; L30.9 Dermatitis, unspecified; Z87.891 Personal history of nicotine dependence; O77.0 Labor and delivery complicated by meconium in amniotic fluid; O62.1 Secondary uterine inertia; O61.0 Failed medical induction of labor; O61.1 Failed instrumental induction of labor
CPT/HCPCS: 59200; 59514; 36415; 85027; 86850; 86900; 86901; 86762; J0131; J0456; J0690; J1100; J1885; J2310; J2371; J2405; J3010; J3490

== ENCOUNTER 2023-08-08 12:09 | Outpatient (CLI) | payer BC, SELFPAY ==
[2023-08-08 12:22] VITALS: BP 138/85; PULSE 71; RESP 18
[2023-08-08 12:49] LABS: HGB 13.7 g/dL (11.2-15.7); MCH 32.5 pg (27.0-33.0); MCHC 34.3 % (32.0-36.0); MCV 95 fL (80-95); MPV 10.9 fL (8.0-11.0); Platelet Count 263 10^3/uL (130-400); RBC 4.22 10^6/uL (3.93-5.22); RDW 11.6 % (11.7-14.6); RDW-SD 39.9 fL
[2023-08-08 12:55] VITALS: BP 128/78; PULSE 82; RESP 16
[2023-08-08 13:06] LABS: ALT 34 U/L (14-59); AST 19 U/L (15-37); Albumin 3.4 g/dL (3.4-5.0); Alkaline Phosphatase 99 U/L (46-116); BUN 12 mg/dL (7-18); Bilirubin, Total 0.3 mg/dL (0.2-1.0); CREATININE 0.7 mg/dL (0.55-1.02); Calcium 9.1 mg/dL (8.5-10.1); Chloride 98 mmol/L (98-107); Estimated GFR 120.74 (mL/min/1.73m2); Glucose 115 mg/dL (74-106); Potassium 3.6 mmol/L (3.5-5.1); Sodium 137 mmol/L (136-145); Total Protein 7.8 g/dL (6.4-8.2)
--- NOTE | 2023-08-08 13:24 | W.PM.PROGNOT ---
Date of Service Date of service: 08/08/23 Time of Service: 13:24 Assessment and Plan Assessment and plan (1) hypertension: Status: Acute Assessment and plan: Blood pressure is improved, labs are normal. Discharge home with normal precautions. Follow-up in 1 week for blood pressure check women's wellness. (2) S/P section: Status: Acute Subjective Subjective Interval history since last seen: Patient seen and examined in the office today, she did have elevated blood pressure and on the center blood pressure is more normal at 130s over 80s. She had a CBC and a CMP performed and we are awaiting a urine protein creatinine ratio, however her labs are normal. Precautions were given and she will be discharged home to be followed up in the office in 1 week's time. Objective Last Vital Signs Pulse 82 08/08/23 12:55 Resp 16 08/08/23 12:55 BP 128/78 08/08/23 12:55 Laboratory Results - last 24 hr 08/08/23 12:40 WBC 7.60 RBC 4.22 Hgb 13.7 Hct 40.0 MCV 95 MCH 32.5 MCHC 34.3 RDW 11.6 L Plt Count 263 MPV 10.9 Sodium 137 Potassium 3.6 Chloride 98 Carbon Dioxide 30.0 Anion Gap 9.0 BUN 12 Creatinine 0.7 Est GFR (CKD-EPI 2020) 120.74 Glucose 115 H Calcium 9.1 Total Bilirubin 0.3 AST 19 ALT 34 Alkaline Phosphatase 99 Total Protein 7.8 Albumin 3.4 Time Spent with Patient Time Spent with Patient: <25 minutes Time was spent: preparing to see the patient(eg.review tests), obtaining and/or reviewing separately otained hiistory, ordering medications,tests, procedures, referring, communicating with other health primary care nurse practitioner, indepentently interpreting results and counseling the patient
[2023-08-08 13:41] LABS: COMMENT (LAB VIEW ONLY) 28.62 mg/dL; Prot/Crea Ur Ratio 0.27
== END 2023-08-08 13:25 ==
LOC: BCD 12:09 → OBS 12:14
PROVIDERS: Visit Provider Obstetrics & Gynecology
DX: O16.5 Unspecified maternal hypertension, complicating the puerperium (principal); Z98.891 History of uterine scar from previous surgery
CPT/HCPCS: 36415; 80053; 85027; 82565; 84156; G0378

== ENCOUNTER 2024-11-28 11:30 | Outpatient (REF) | payer SELFPAY ==
--- NOTE | 2024-11-28 11:00 | PAPFT_PTH ---
PATIENT: Ariane Zepeda LOC: [facility] U#:[id number] AGE/SX: 28/F ROOM: RE11/28/[address]: Madeline Zelaya DO : 1995 BED: DIS: 11/28/2024 SPEC #: [id number] RECD: 11/28/24 12:41 STATUS: SONAL REQ #: [id number] JESSE: 11/28/24 11:[address]: Madeline Zelaya DEPT: [facility] Cytology RECD BY: Farzana Elmore ENTERED: 11/28/24 12:41 SP TYPE: PAPFT OTHR DR: Unknown,Unknown Tissues: 1 - CX/ENDOCX FOR PAP SMEARS Procedures: PAP THIN PREP/UVM Screening HPV DNA PROBE Comments: [id number] (HPV 16 & 18/45)
== END 2024-11-28 11:31 | disposition home or self-care (01) ==
LOC: LBN 11:30
PROVIDERS: Visit Provider Obstetrics & Gynecology
DX: Z12.4 Encounter for screening for malignant neoplasm of cervix (principal)
CPT/HCPCS: 88142; 87624